=== PATIENT | female | born 1935 | race Caucasian/White ===

== ENCOUNTER 2018-07-03 10:21 | Outpatient (REF) | payer MEDICARE, OTHER, SELFPAY ==
[2018-07-03 13:28] LABS: ALT 22 U/L (12-78); AST 19 U/L (15-37); Albumin 3.1 g/dL (3.4-5.0); Alkaline Phosphatase 104 U/L (46-116); Anion Gap 6.5 mmol/L (3-11); BUN 13 mg/dL (7-18); Bilirubin, Total 0.4 mg/dL (0.2-1.0); CO2 29.5 mmol/L (21.0-32.0); Calcium 9.3 mg/dL (8.5-10.1); Chloride 106 mmol/L (98-107); Cholesterol 163 mg/dL (50-200); Estimated GFR 47.67 (mL/min/1.73m2); Glucose 100 mg/dL (70-100); HDL Cholesterol 43 mg/dL (40-60); LDL CHOLESTEROL 97 mg/dL (<100); Potassium 4.4 mmol/L (3.5-5.1); Sodium 142 mmol/L (136-145); Total Protein 6.4 g/dL (6.4-8.2); Triglyceride 172 mg/dL (30-150)
== END 2018-07-03 10:41 ==
LOC: NCHCN 10:21
PROVIDERS: PCP Nurse Practitioner; Visit Provider Nurse Practitioner
DX: E78.5 Hyperlipidemia, unspecified (principal); I10 Essential (primary) hypertension
CPT/HCPCS: 80053; 80061; 83721

== ENCOUNTER 2018-07-18 00:48 | Outpatient (CLI) | payer MEDICARE, OTHER, SELFPAY ==
--- NOTE | 2018-07-18 13:42 | MERGE_ITS ---
*[facility]* *[facility]* [address] [place] [address] Date of study: 07/18/2018 Transthoracic Echocardiography M-mode, complete 2D, complete spectral Doppler, and color Doppler *STUDY CONCLUSIONS* Summary: 1. Left ventricle: The cavity size was normal. There was mild asymmetric hypertrophy of the septum. Systolic function was normal. The estimated ejection fraction was 60-65%. Wall motion was normal; there were no regional wall motion abnormalities. 2. Mitral valve: There was mild regurgitation. 3. Right ventricle: The cavity size was normal. Wall thickness was normal. Systolic function was normal. *PATIENT PRESENTATION* Height: 165.1cm ((65in) ) S/D Pressure: 172 / 70 Weight: 81.6kg ((179.6lb) ) BSA: 1.96m^2 Test start time: 02:00 PM. Test stop time: 03:00 PM. PERFORMING Unknown PERFORMING Nv ORDERING eJane Ruiz REFERRING Jeane Ruiz INSURANCE CLAIMS CLERK RT Omar (R)(CT), [facility] *PROCEDURE DATA* Procedure information: The patient was identified by two identifiers. This study was interpreted by [facility]. Pertinent images and digital data are archived for permanent storage and are available for subsequent review. No prior study was available for comparison. Study status: Routine. Transthoracic echocardiography. M-mode, complete 2D, complete spectral Doppler, and color Doppler. A Transthoracic Echocardiogram was performed. Scanning was performed from the parasternal, apical, subcostal, and suprasternal notch acoustic windows. Images were obtained using an [id number] cardiac ultrasound machine. Image quality was adequate. Study completion: The patient tolerated the procedure well. There were no complications. History: PMH: Heart murmur R01.1. *CARDIAC ANATOMY* Left ventricle: The cavity size was normal. There was mild asymmetric hypertrophy of the septum. Systolic function was normal. The estimated ejection fraction was 60-65%. Wall motion was normal; there were no regional wall motion abnormalities. Findings consistent with diastolic dysfunction. Aortic valve: Trileaflet; mildly thickened, mildly calcified leaflets. Mobility was not restricted. Doppler: Transvalvular velocity was within the normal range. There was no stenosis. There was no significant regurgitation. VTI ratio of LVOT to aortic valve: 0.53. Valve area (VTI): 1.7cm^2. Indexed valve area (VTI): 0.8cm^2/m^2. Peak velocity ratio of LVOT to aortic valve: 0.58. Valve area (Vmax): 1.8cm^2. Indexed valve area (Vmax): 0.9cm^2/m^2. Mean velocity ratio of LVOT to aortic valve: 0.62. Valve area (Vmean): 1.9cm^2. Indexed valve area (Vmean): 1cm^2/m^2. Mean gradient (S): 3.7mm Hg. Peak gradient (S): 6mm Hg. Aorta: Aortic root: The aortic root was normal in size. Ascending aorta: The ascending aorta was normal in size. Mitral valve: Mildly calcified annulus. Mobility was not restricted. Doppler: Transvalvular velocity was within the normal range. There was no evidence for stenosis. There was mild regurgitation. Valve area by pressure half-time: 3.5cm^2. Indexed valve area by pressure half-time: 1.8cm^2/m^2. Peak gradient (D): 3mm Hg. Left atrium: The atrium was normal in size. Right ventricle: The cavity size was normal. Wall thickness was normal. Systolic function was normal. Pulmonic valve: Mildly thickened leaflets. Doppler: Transvalvular velocity was within the normal range. There was no evidence for stenosis. There was mild regurgitation. Peak gradient (S): 3.5mm Hg. Tricuspid valve: Structurally normal valve. Doppler: Transvalvular velocity was within the normal range. There was no evidence for stenosis. There was mild regurgitation. Pulmonary artery: Pulmonary systolic pressure was within the normal range, in the range of 35mm Hg to 40mm Hg. Right atrium: The atrium was normal in size. Pericardium: There was no pericardial effusion. Systemic veins: Inferior vena cava: Well visualized. The vessel was patent and normal in size. The respirophasic diameter changes were in the normal range (greater than or equal to 50%). Baseline ECG: Normal sinus rhythm. Measurements Left ventricle Value Reference LV ID, ED, PLAX 4.7 cm 3.5 - 6.0 LV ID, ES, PLAX 3.0 cm 2.1 - 4.0 LV PW thickness, ED, PLAX 0.9 cm LV end-diastolic volume, 1-p A2C 65 ml LV ejection fraction, 1-p A2C 67 % LV end-diastolic volume, 1-p A4C 60 ml LV ejection fraction, 1-p A4C 65 % LV e', lateral 0.072 m/sec LV E/e', lateral 12 LV e', medial 0.052 m/sec LV E/e', medial 16 LV e', average 0.062 m/sec LV E/e', average 14 Ventricular septum Value Reference IVS thickness, ED, PLAX 1.3 cm LVOT Value Reference LVOT ID, S 2.0 cm LVOT ID, A-P 2.0 cm LVOT area 3.1 cm^2 LVOT peak velocity, S 0.72 m/sec LVOT mean velocity, S 0.57 m/sec LVOT VTI, S 16.4 cm LVOT peak gradient, S 2.1 mm Hg LVOT mean gradient, S 1.3 mm Hg Stroke volume (SV), LVOT DP 47 ml Stroke index (SV/bsa), LVOT DP 24 ml/m^2 Aortic valve Value Reference Aortic valve peak velocity, S 1.2 m/sec Aortic valve mean velocity, S 0.91 m/sec Aortic valve VTI, S 31.0 cm Aortic mean gradient, S 3.7 mm Hg Aortic peak gradient, S 6 mm Hg VTI ratio, LVOT/AV 0.53 Aortic valve area, VTI 1.7 cm^2 Velocity ratio, peak, LVOT/AV 0.58 Aortic valve area, peak velocity 1.8 cm^2 Velocity ratio, mean, LVOT/AV 0.62 Aortic valve area, mean velocity 1.9 cm^2 Aortic valve area/bsa, mean velocity 1 cm^2/m^2 Aorta Value Reference Aortic root ID, ED 3.1 cm Ascending aorta ID, A-P, S 3.3 cm Left atrium Value Reference LA ID, A-P, ES 3.5 cm LA ID/bsa, A-P 1.8 cm/m^2 <=2.2 LA area, ES, A4C 20.5 cm^2 8.8 - 23.4 LA area, ES, A2C 20 cm^2 LA volume/bsa, ES, 1-p A4C 35 ml/m^2 LA volume, ES, 2-p 55 ml LA volume/bsa, ES, 2-p 28 ml/m^2 LA/aortic root ratio 1.1 Mitral valve Value Reference Mitral E-wave peak velocity 0.86 m/sec Mitral A-wave peak velocity 0.78 m/sec Mitral deceleration time 218 ms 150 - 230 Mitral pressure half-time 63 ms Mitral peak gradient, D 3 mm Hg Mitral E/A ratio, peak 1.11 Mitral valve area, PHT, DP 3.5 cm^2 Pulmonary veins Value Reference Pulmonary vein peak velocity, S 0.7 m/sec Pulmonary vein peak velocity, D 0.72 m/sec Pulmonary vein velocity ratio, peak, 0.97 S/D Pulmonary vein A-wave reversal peak 0.31 m/sec velocity Tricuspid valve Value Reference Tricuspid regurg peak velocity 3.2 m/sec Tricuspid peak RV-RA gradient 40 mm Hg Right atrium Value Reference RA area, ES, A4C 17.3 cm^2 8.3 - 19.5 Pulmonic valve Value Reference Pulmonic peak gradient, S 3.5 mm Hg Legend: (L) and (H) rashmi values outside specified reference range. I have personally reviewed the images and have reviewed and edited the reported findings. Electronically signed by Rohan Carmichael 07/18/2018 17:32
== END 2018-07-18 01:08 ==
PROVIDERS: PCP Nurse Practitioner; Visit Provider Nurse Practitioner
DX: R01.1 Cardiac murmur, unspecified (principal); I34.0 Nonrheumatic mitral (valve) insufficiency; I10 Essential (primary) hypertension; E78.5 Hyperlipidemia, unspecified
CPT/HCPCS: 93306

== ENCOUNTER 2019-01-02 11:42 | Outpatient (REF) | payer MEDICARE, OTHER, SELFPAY ==
[2019-01-02 13:50] LABS: HCT 40.6 % (36.0-46.0); HGB 12.9 g/dL (12.0-15.5); Mean Corp. HGB Concentration 31.8 g/dL (32.0-36.0); Mean Corpuscular Hemoglobin 27.7 pg (27.0-33.0); Mean Corpuscular Volume 87.1 fL (80-95); Mean Platelet Volume 10.8 fL (8.0-11.0); Platelet Count 421 x1000/uL (130-400); RBC 4.66 m/cumm (4.00-5.20); RBC Distribution Width 13.4 % (11.7-14.6); White Blood Cell Count 9.29 k/cumm (4.4-10.8)
[2019-01-02 15:03] LABS: ALT 17 U/L (14-59); AST 20 U/L (15-37); Albumin 3.3 g/dL (3.4-5.0); Alkaline Phosphatase 122 U/L (46-116); Anion Gap 8.1 mmol/L (3-11); BUN 17 mg/dL (7-18); Bilirubin, Total 0.5 mg/dL (0.2-1.0); CO2 28.9 mmol/L (21.0-32.0); CREATININE 1.01 mg/dL (0.55-1.02); Calcium 9.6 mg/dL (8.5-10.1); Chloride 105 mmol/L (98-107); Estimated GFR 52.61 (mL/min/1.73m2); Glucose 88 mg/dL (70-100); Potassium 4.6 mmol/L (3.5-5.1); Sodium 142 mmol/L (136-145); TSH (W/Ref FT4) 1.99 uIU/mL (0.36-3.74); Total Protein 6.6 g/dL (6.4-8.2)
== END 2019-01-02 12:02 ==
LOC: NCHCN 11:42
PROVIDERS: PCP Nurse Practitioner; Visit Provider Nurse Practitioner
DX: R53.83 Other fatigue (principal)
CPT/HCPCS: 80053; 85027; 84443

== ENCOUNTER 2019-01-02 13:49 | Outpatient (CLI) | payer MEDICARE, OTHER, SELFPAY ==
--- NOTE | 2019-01-02 11:30 | DI.RAD_ITS ---
EXAM: XR RIBS LT W PA LAT CHEST INDICATION: RIB PAIN R07.81, FELL 2 WEEKS AGO, LT ANTERIOR CHEST WALL DISCOMFORT. COMPARISON: CHEST 2 VIEWS PA,LAT from 04/10/2012 TECHNIQUE: 2D digital imaging was performed. FINDINGS: Heart size is normal. The lungs are clear. No pneumothorax is seen. No thoracic compression fract ures are seen. A BB marker was placed over the lower left ribs in the area of the patient's pain. N o rib fractures are visible. IMPRESSION: No acute abnormality.
== END 2019-01-02 14:09 ==
PROVIDERS: PCP Nurse Practitioner; Visit Provider Nurse Practitioner
DX: R07.81 Pleurodynia (principal)
CPT/HCPCS: 71046; 71100

== ENCOUNTER 2019-02-05 15:01 | Outpatient (REF) | payer MEDICARE, OTHER, SELFPAY ==
[2019-02-05 19:06] LABS: Abs Immature Grans 0.02 k/cumm (0.0-0.09); Absolute Basophil Count 0.05 k/cumm (0.0-0.2); Absolute Eosinophil Count 0.06 k/cumm (0.0-0.7); Absolute Lymphocyte Count 2.83 k/cumm (1.2-3.4); Absolute Monocyte Count 1.15 k/cumm (0.11-0.7); Absolute Neutrophil Count 5.87 k/cumm (1.2-6.7); Basophils % 0.5; Eosinophils % 0.6; HCT 41.2 % (36.0-46.0); HGB 13.3 g/dL (12.0-15.5); Immature Grans % 0.2; Lymphocytes % 28.4; Mean Corp. HGB Concentration 32.3 g/dL (32.0-36.0); Mean Corpuscular Hemoglobin 28.1 pg (27.0-33.0); Mean Corpuscular Volume 87.1 fL (80-95); Mean Platelet Volume 10.9 fL (8.0-11.0); Monocytes % 11.5; Neutrophils % 58.8; Platelet Count 436 x1000/uL (130-400); RBC 4.73 m/cumm (4.00-5.20); RBC Distribution Width 13.5 % (11.7-14.6); White Blood Cell Count 9.98 k/cumm (4.4-10.8)
[2019-02-05 19:54] LABS: Iron 84 ug/dL (50-170); Total Iron Binding Capacity 319 ug/dL (250-450); Transferrin Sat 26 % (15-50)
[2019-02-05 20:13] LABS: ALT 21 U/L (14-59); AST 20 U/L (15-37); Albumin 3.6 g/dL (3.4-5.0); Alkaline Phosphatase 105 U/L (46-116); Anion Gap 7.8 mmol/L (3-11); BUN 14 mg/dL (7-18); Bilirubin, Total 0.5 mg/dL (0.2-1.0); CO2 31.2 mmol/L (21.0-32.0); CREATININE 1.11 mg/dL (0.55-1.02); Calcium 9.8 mg/dL (8.5-10.1); Chloride 103 mmol/L (98-107); Estimated GFR 47.18 (mL/min/1.73m2); Ferritin 30 ng/mL (8-252); Glucose 104 mg/dL (74-106); Potassium 4.4 mmol/L (3.5-5.1); Sodium 142 mmol/L (136-145); Total Protein 6.9 g/dL (6.4-8.2)
[2019-02-05 20:41] LABS: Amylase 81 U/L (25-115); Lipase 237 U/L (73-393)
== END 2019-02-05 15:21 ==
LOC: NCHCN 15:01
PROVIDERS: PCP Nurse Practitioner; Visit Provider Nurse Practitioner
DX: R53.83 Other fatigue (principal); R10.11 Right upper quadrant pain
CPT/HCPCS: 80053; 83690; 82150; 82728; 83540; 83550; 85025

== ENCOUNTER 2019-02-07 01:39 | Outpatient (CLI) | payer MEDICARE, OTHER, SELFPAY ==
--- NOTE | 2019-02-07 07:48 | DI.US_ITS ---
EXAM: US ABDOMEN CLINICAL HISTORY: ABDOMINAL PAIN, RUQ R10.11 TECHNIQUE: Ultrasound performed using standard protocol. FINDINGS: The liver is incompletely seen and heterogeneous in appearance. Gallbladder is been surgically remov ed. No biliary dilatation. Pancreas not ideally visualized but grossly unremarkable. Kidneys appea r intact as visualized with no evidence of hydronephrosis or nephrolithiasis. Abdominal aorta and IV C are of normal diameter. IMPRESSION: Incomplete visualization of liver. Grossly unremarkable examination post cholecystectomy.
== END 2019-02-07 01:59 ==
PROVIDERS: PCP Nurse Practitioner; Visit Provider Nurse Practitioner
DX: R10.11 Right upper quadrant pain (principal); Z90.49 Acquired absence of other specified parts of digestive tract
CPT/HCPCS: 76700

== ENCOUNTER 2019-12-20 04:26 | Observation (INO) | payer MEDICARE, OTHER, SELFPAY ==
[2019-12-20] VITALS (81 sets, daily range): BP systolic 131–241; BP diastolic 55–118; PULSE 55–82; RESP 10–27; TEMP 36.3–36.8; O2SAT 95–99
--- NOTE | 2019-12-20 | DI.US_ITS ---
APPROVED REPORT EXAM: Comprehensive 2D, Doppler, and color-flow Echocardiogram Patient Location: In-Patient Room/Bed: [id number] Construction Producer: Yessi aLm RDCS (AE) Indications: CVA Other Information Study Quality: Good Conclusion Left Ventricle : The left ventricle is normal size. The left ventricular systolic function is normal. The left ventricular ejection fraction is within the normal range. There is normal left ventricular wall thickness. There is normal LV segmental wall motion. The left ventricular diastolic function is normal. LVEF is 60%. Right Ventricle : The right ventricle is normal size. The right ventricular systolic function is norm al. The RVSP is 45.5mmHg. Atria : The left atrium size is normal. The right atrium size is normal. Mitral Valve : Mild mitral annular calcification. No evidence of mitral valve stenosis. Mild mitral r egurgitation. Great Vessels : The aortic root is normal in size. The ascending aorta is mildly dilated. Aortic arch is normal in caliber. IVC is normal in size and collapses >50% with inspiration. Please see remainder of study for further details. Compared to study from 07/18/2018: There is no significant change. Wall motion Left Ventricle The left ventricle is normal size. The left ventricular systolic function is normal. The left ventric ular ejection fraction is within the normal range. There is normal left ventricular wall thickness. T here is normal LV segmental wall motion. The left ventricular diastolic function is normal. There is no ventricular septal defect visualized. LVEF is 60%. Right Ventricle The right ventricle is normal size. The right ventricular systolic function is normal. The RVSP is 45 .5mmHg. Atria The left atrium size is normal. The right atrium size is normal. The interatrial septum is intact wit h no evidence for an atrial septal defect. Aortic Valve The Aortic valve is sclerotic. Aortic valve is trileaflet. There is no aortic valvular stenosis. No a ortic regurgitation is present. Mitral Valve Mild mitral annular calcification. No evidence of mitral valve stenosis. Mild mitral regurgitation. Tricuspid Valve The tricuspid valve is normal in structure. There is no tricuspid valve stenosis. Mild to moderate tr icuspid regurgitation. Pulmonic Valve The pulmonary valve is normal in structure. There is no pulmonic valvular stenosis. Trace pulmonic re gurgitation. Great Vessels The aortic root is normal in size. The ascending aorta is mildly dilated. Aortic arch is normal in ca liber. IVC is normal in size and collapses >50% with inspiration. Pericardium There is no pericardial effusion. 2D Dimensions IVSD d PLAX 0.99 cm F: 0.6-1.0 LV Vol A2C d MOD 85.5 mL LVPW d PLAX 0.97 cm F: 0.6 - 1.0 LV Vol A4C d MOD 101.1 mL LVID d PLAX 4.54 cm F: 3.8 - 5.2 LA vol/ BSA A2C s A-L 29.6 mL/m2 LVDs 2.95 cm F: 2.2 - 3.5 LA vol/ BSA A4C s A-L 32.0 mL/m2 Ao Root d 2.69 cm F: 2.7 - 3.3 LA Vol/ BSA Biplane s A-L 30.9 mL/m2 RA Area A4C 16.17 cm2 LA Area A4C s MOD 20.71 cm2 RA Vol/ BSA A4C s A-L 21.1 mL/m2 LA Area A2C s MOD 20.02 cm2 Ao Asc Diam d 3.39 cm F: 2.3 - 3.1 LV EF A4C MOD 60.9 % LV EF Teichholz 63.1 % LV EF A2C MOD 59.5 % LVEF (Saavedra's) 59.68 % F: 54 - 74 LV EF Biplane MOD 59.7 % LV Volume 71.68 mL F: 46 - 106 SV 56.18 mL LV Volume Index 37.52 mL/m2 F: 29 - 61 SV Index 29.37 mL/m2 LV Vol Biplane MOD 94.1 mL FS 34.00 % M-Mode TAPSE 3.25 cm (M/F) >1.7 LV Diastology MV E' medial 0.075 (>0.07 m/s) E/A Ratio 1.1 LV E/e MED 12.95 (<14) MV E Vmax 0.97 (0.4-1.3 m/s) MV E' lateral 0.098 (>0.1 m/s) MV A Vmax 0.85 (0.4-1.3 m/s) LV E/e LAT 9.85 (<14) MV E/A Ratio 1.12 MV E/E' medial 12.95 MV E/E' lateral 9.88 Aortic Valve LVOT Area 3.05 cm2 AoV Area Vmax 2.29 cm2 LVOT Vmax 1.26 m/s AoV Area/ BSA (Vmax) 1.20 cm2/m2 LVOT Mean Harshal. 0.79 m/s LEIGHTON Mean Harshal. 2.15 cm2 LVOT Peak Grad 6.3 mmHg LEIGHTON Mean Harshal. Index 1.12 cm2/m2 LVOT Mean Grad 3.0 mmHg LVOT VTI 0.311 m LVOT Diam s 1.95 cm AoV Vmax 1.67 m/s Velocity Ratio 0.75 AoV Mean Harshal. 1.12 m/s AoV Peak Grad 11.2 mmHg LVOT SV 95.01 mL AoV Mean Grad 5.8 mmHg AoV VTI 0.440 m AoV Area VTI 2.16 cm2 AoV Area/ BSA (VTI) 1.13 cm/m2 Mitral Valve MV DT 191 (160-240 msec) MR Vmax 5.57 m/s MV PHT 55 msec MR VTI 1.980 m MV Area PHT 3.98 cm2 MR Peak Grad 124.2 mmHg MV VTI 0.333 m MR Mean Grad 98.2 mmHg MV VTI Annulus 0.348 m MR PISA Radius 0.33 cm MV Area VTI 2.99 (4.0-6.0 cm2) MR EROA 0.04 cm2 MR Aliasing Velocity 0.35 m/s MR PISA 0.69 cm2 Pulmonary Valve PV Vmax 0.99 (0.5-1.5 m/s) RVOT Peak Gr. 2.12 mmHg PV Peak Grad 4.0 mmHg RVOT Mean Gr. 1.05 mmHg PV Mean Grad 2.2 mmHg RVOT VTI 0.172 m PV VTI 0.243 m RVOT Vmax 0.73 m/s Tricuspid Valve TR Peak Grad 42.4 mmHg TR Vmax 3.26 m/s RA Pressure 3.00 mmHg RVSP (TR) 45.5 mmHg
--- NOTE | 2019-12-20 | DI.MRI_ITS ---
EXAM: MR BRAIN WO CLINICAL HISTORY: stroke TECHNIQUE: Multiplanar multisequence MRI of the brain was performed. COMPARISON: No exams were available for comparison FINDINGS: There is mild generalized cerebral atrophy consistent with the patient's age.. There are scattered white matter focal areas of abnormal signal consistent mild microvascular ischemi c changes. The orbital and temporal bone structures appear intact as does the pituitary. Diffusion weighted imaging shows small focal area of abnormal signal in left thalamus period ADC map shows decreased signal at this site consistent with acute to subacute infarction. Susceptibility weighted imaging shows couple of small focal areas of abnormal signal in the basal wally glia bilaterally which are likely to represent calcifications. No gross hemorrhagic seen. There is normal flow void in the [place] vasculature. 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 No other acute change. DATA REPOSITORY:
--- NOTE | 2019-12-20 03:45 | RT.EKG_ITS ---
APPROVED REPORT Exam: Resting ECG Patient Location: E HR:66 bpm ECG Measurements Heart Rate 66 AXIS NC 206 P 48 QRSd 93 QRS 13 QT 412 T 72 QTc 431 Conclusion EKG 4: 23 Rate 66, intervals normal aside for a slightly prolonged NC at 206, sinus rhythm, atypical T wave abn ormality in V4 with less than 1 mm of depression, no reciprocal elevation, no evidence of STEMI.
--- NOTE | 2019-12-20 04:22 | ED.GENADUL_ITS ---
Discharge Plan Disposition Patient Disposition: [facility] INPATIENT Condition: Improving Discharge Details Clinical Impression: Hypertensive emergency, Stroke-like symptom, Numbness on right side Primary Care Provider: Jeane Ruiz ED Provider: Skip Patel Home Meds and New Rx's Prescriptions: No Action rabeprazole [AcipHex] 20 MG tablet,delayed release (DR/EC) 20 mg PO BID RF: 0 atorvastatin 10 MG tablet 10 mg PO DAILY RF: 0 metoprolol succinate 50 MG tablet extended release 24 hr 50 mg PO DAILY RF: 0 aspirin [Aspirin Low-Strength] 81 MG tablet,chewable See Rx Instructions .ROUTE .COMPLEX RF: 0 cholecalciferol (vitamin D3) [Vitamin D3] 1,000 UNIT capsule 1,000 unit PO DAILY RF: 0 escitalopram oxalate [Lexapro] 5 MG/5 ML solution 10 mg PO DAILY RF: 0 hydrochlorothiazide 12.5 mg Capsule 12.5 mg PO DAILY RF: 0 Medical Decision Making Upon my evaluation, this patient had a high probability of imminent or life- threatening deterioration, which required my direct attention, intervention, and personal management. I have personally provided 45 minutes of critical care time exclusive of time spent on separately billable procedures. Time includes review of laboratory data, radiology results, discussion with consultants, and monitoring for potential decompensation. Interventions were performed as documented. 84-year-old female with a past medical history of previous breast and bladder cancer with left-sided mastectomy, hypertension, high cholesterol, diabetes, and a distant TIA, over 40 years ago. She presents today for evaluation of right-sided tingling. Patient states that 2 hours ago at 2 AM she developed sudden onset right-sided tingling when she awoke. She got moved around hoping this would make it better but it did not. She describes the numbness and tingling as going from the right side of her face all the way down to her right leg. EMS was called, stroke assessment at that time demonstrated no focal deficits. She was brought to the ER for further management. Initial vital signs per EMS demonstrated a notable hypertensive scenario with a blood pressure in the systolic of the 240s. She denies any headache, neck pain, chest pain, tearing or ripping sensation in the chest, recent falls or trauma or new medications. She does take metoprolol 50 mg twice daily and has not missed any doses. She denies any other complaints at this time. She denies any vision changes, nausea vomiting or diarrhea. No other complaints modifying factors. M demonstrates notable deficit in sensation for the right side of the patient's body, worse in the leg, moderate in the chest and abdomen, mild in the right arm, and minimal in the right face. The remainder of her neurologic exam is otherwise unremarkable. Pulses are equal throughout, strength is equal and symmetric throughout. Symptoms are certainly atypical, with the patient's notably elevated blood pressure a hypertensive emergency is certainly on the differential. We will start with 10 mg of labetalol and reassess. EKG shows no evidence of STEMI or significant abnormality. Differential also obviously includes stroke versus TIA for which we will get CT imaging. I did contact the patient's and discussed this with him, he will be coming in to be with the patient. We will monitor closely and reassess. Right now the patient symptoms appearing consistent with dissection with no evidence of chest pain shortness of breath or chest tightness. NIH score is one-point, not a candidate for TPA. I did discuss options of TPA as a precaution though, and both she and her are not interested in that at this time. Additionally I do not see indication for currently. The risks certainly do not outweigh the potential minimal benefit. Family agrees. 5:58 AM Laboratory work-up is returned relatively unremarkable. Electrolytes are stable, TSH is notably elevated but I do not think that this is the cause of her symptomatology. EKG and troponin are both negative although she does have slight T wave abnormality in V4. CT/CTA of the head is negative for bleed or occlusion, chest x-ray negative for mediastinal widening. On reassessment after 20 of IV labetalol the patient's blood pressure only came down to the high 190s, nicardipine drip was started and the patient's blood pressure is now come down to the 180s/170s, we will hold there. Symptoms actually are starting to show mild improvement with mild improvement in sensation in her lower extremity and a notable improvement in her upper extremity. She still is not a candidate for TPA especially with this notable improvement of her symptoms and with her continued low NIH stroke scale. I do feel her symptoms are more likely consist ent with a hypertensive emergency rather than a TIA however I do feel she would benefit from inpatient management, MRI imaging, and continued assessment. Of note the patient does state that she did take a full dose of aspirin prior to arrival. We will hold on her aspirin here. I did discuss the case with hospitalist Dr. Walters. He agrees with the assessment and plan. I have extensively reviewed the treatment plan with the patient. I have addressed all patient concerns at this time. I have also discussed the plan with the admitting physician and they agree with the current assessment and plan and have agreed to assume responsibility for the patient. All parties demonstrate verbal understanding and agreement with our assessment and plan at this time. EKG 4: 23 Rate 66, intervals normal aside for a slightly prolonged [place] at 206, sinus rhythm, atypical T wave abnormality in V4 with less than 1 mm of depression, no reciprocal elevation, no evidence of STEMI. FINDINGS: Lungs: Mild chronic interstitial prominence No consolidation. Pleural space: No pleural effusion. No pneumothorax. Heart/Mediastinum: No mediastinal widening. No cardiomegaly. Bones/joints: Unremarkable. Prior left mastectomy by history IMPRESSION: No acute findings. No radiographic evidence for pneumonia No mediastinal widening Thank you for allowing us to participate in the care of your patient. Dictated and Authenticated by: Brodie Mccrary MD 12/20/2019 5:43 AM Eastern Time ([place] & [place] FINDINGS: ANTERIOR CIRCULATION: Right internal carotid artery: Intracranial segment is patent with no significant stenosis or occlusion. No aneurysm. Right middle cerebral artery: No occlusion or significant stenosis. No aneurysm. Right anterior cerebral artery: No occlusion or significant stenosis. No aneurysm. Left internal carotid artery: Intracranial segment is patent with no significant stenosis. No aneurysm. Left middle cerebral artery: No occlusion or significant stenosis. No aneurysm. Left anterior cerebral artery: No occlusion or significant stenosis. No aneurysm. POSTERIOR CIRCULATION: Right vertebral artery: No occlusion or significant stenosis. No aneurysm. Left vertebral artery: No occlusion or significant stenosis. No aneurysm. Basilar artery: No occlusion or significant stenosis. No aneurysm. Right posterior cerebral artery: No occlusion or significant stenosis. No aneurysm. Left posterior cerebral artery: No occlusion or significant stenosis. No aneurysm. HEAD: Brain:No acute intracranial hemorrhage. No significant white matter disease. No edema. Cerebral ventricles: Normal. No ventriculomegaly. Bones/joints: Unremarkable. No acute fracture. Paranasal sinuses: Visualized sinuses are normal. No fluid levels. Mastoid air cells: Visualized mastoids are normal. No mastoid effusion. Soft tissues: Unremarkable. IMPRESSION: No large vessel occlusion. Unremarkable CT head. Right common carotid artery: No stenosis. No dissection or occlusion. Right internal carotid artery: No stenosis of the extracranial segment. No dissection or occlusion. Right external carotid artery: No occlusion or stenosis of the origin. Right vertebral artery: No stenosis. No dissection or occlusion. Left common carotid artery: No stenosis. No dissection or occlusion. Left internal carotid artery: No stenosis of the extracranial segment. No dissection or occlusion. Left external carotid artery: No occlusion or stenosis of the origin. Left vertebral artery: No stenosis. No dissection or occlusion. Bones/joints: No acute fracture. Soft tissues: Right-sided thyroid nodule measuring 9 mm by no in the No significant soft tissue swelling. IMPRESSION: No stenosis or occlusion. HPI General Date/Time Provider Initiated Documentation: 12/20/19 04:59 . HPI Narrative: 84-year-old female with a past medical history of previous breast and bladder cancer with left-sided mastectomy, hypertension, high cholesterol, diabetes, and a distant TIA, over 40 years ago. She presents today for evaluation of right-sided tingling. Patient states that 2 hours ago at 2 AM she developed sudden onset right-sided tingling when she awoke. She got moved around hoping this would make it better but it did not. She describes the numbness and tingling as going from the right side of her face all the way down to her right leg. EMS was called, stroke assessment at that time demonstrated no focal deficits. She was brought to the ER for further management. Initial vital signs per EMS demonstrated a notable hypertensive scenario with a blood pressure in the systolic of the 240s. She denies any headache, neck pain, chest pain, tearing or ripping sensation in the chest, recent falls or trauma or new medications. She does take metoprolol 50 mg twice daily and has not missed any doses. She denies any other complaints at this time. She denies any vision changes, nausea vomiting or diarrhea. No other complaints modifying factors. Related Data Home Medications Medication Instructions Recorded Confirmed aspirin [Aspirin Low-Strength] See Rx Instructions .ROUTE 04/01/14 12/20/19 .COMPLEX tab-cap atorvastatin 10 mg PO DAILY tab-cap 04/01/14 12/20/19 cholecalciferol (vitamin D3) 1,000 unit PO DAILY 04/01/14 12/20/19 [Vitamin D] escitalopram oxalate [Lexapro] 10 mg PO DAILY ml 04/01/14 12/20/19 metoprolol succinate 50 mg PO DAILY tab-cap 04/01/14 12/20/19 rabeprazole [Aciphex] 20 mg PO BID 04/01/14 12/20/19 hydrochlorothiazide 12.5 mg PO DAILY 12/20/19 12/20/19 Allergies Allergy/AdvReac Type Severity Reaction Status Date / Time codeine AdvReac nausea Unverified 12/20/19 04:16 Sulfa (Sulfonamide AdvReac GI upset Unverified 12/20/19 04:16 Antibiotics) General Stated Complaint: CVA/TIA JULY: 3 Review of Systems All systems reviewed & are unremarkable except as noted in HPI and below PFSH Social History Smoking/Tobacco Use Status: Former Tobacco Use Alcohol Intake: never Drug use: Never Substance use type: does not use Do you feel safe at home: Yes Do you feel safe in your relationship?: Yes Exam Narrative Exam Narrative: 1.Const: Well-nourished, Well-developed, appearing stated age 2.Eyes: PERRL, no conjunctival injection, and symmetrical lids. 3.ENT: Atraumatic external nose and ears. Moist MM. Neck: Symmetric, trachea midline, No thyromegaly. Patient demonstrates good movement of cervical neck. There is no nuchal rigidity, no nuchal tenderness. Patient is able to flex the neck without any difficulty or significant pain. Negative Kernig's and Brudzinski sign. 4.CVS: +S1/S2, No murmurs or gallops. Peripheral pulses 2+ and equal in all extremities. Brisk capillary refill in all extremities. 5.RESP: Unlabored respiratory effort. Clear to auscultation bilaterally. No wheezes rales or rhonchi 6.GI: Soft, Nontender/Nondistended, No hepatosplenomegaly. No guarding or rebound. 7.MSK: Normocephalic/Atraumatic, Extremities w/o deformity or ttp No cyanosis or clubbing, Normal movement of all extremities 8.Skin: Warm, Dry. No rashes or lesions. 9.Neuro: master in chancery II-XII grossly intact. All 6 cardinal planes of vision are fully intact. However the patient does seem to have some slight blurry vision on the right visual garber in comparison to the left for the right lateral and specific. No evidence of rotatory or vertical nystagmus, she does have mild horizontal nystagmus, fatigable, unidirectional to the left. The patient demonstrated a normal [id number], good dexterity. There was no evidence of dysdiadochokinesia.. The patient demonstrated a notably unsteady gait. Vgtv-wg-tyse testing was normal. muscle strength bilaterally equal and present for all extremities. Patient was able to verbalize butter cup with no slurring, or miss pronunciation. Notable sensation deficit for the right side of the patient's body. She has notably decreased and almost absent sensation for the right lower extremity including the foot toes and thigh. Decreased sensation over the right side of the abdomen and chest. Decreased but mildly present sensation for the right arm which she describes subjectively as [id number]. No significant pain with pinching. Sensation is present on the right side of the face but she subjectively feels that it is notably less in no debility in comparison to the left. Left side of the patient's body demonstrates normal sensation throughout. 10.Psych: (AAO) x3. Appropriate mood and affect Course Vital Signs Vital signs: Vital Signs Temperature 36.8 C 12/20/19 04:08 Pulse 78 12/20/19 04:08 Respiratory Rate 18 12/20/19 04:08 Blood Pressure 241/82 H 12/20/19 04:08 Pulse Oximetry 98 12/20/19 04:08 Temperature 36.8 C 12/20/19 04:08 Temperature Source Skin 12/20/19 04:08 Pulse 78 12/20/19 04:08 Respiratory Rate 18 12/20/19 04:08 Blood Pressure 241/82 H 12/20/19 04:08 Blood Pressure Position Supine 12/20/19 04:08 Pulse Oximetry 98 12/20/19 04:08 Oxygen Delivery Method Room Air 12/20/19 04:08 Oxygen Flow Rate 0 12/20/19 04:08 Pain Level 0 12/20/19 04:08
[2019-12-20] MEDS: Labetalol 100 MG/20 ML VIAL 20 MG IVP ×2 (04:28→04:43)
[2019-12-20] MEDS: Normal Saline 500 ML IV (04:30)
[2019-12-20 04:38] LABS: Abs Immature Grans 0.02 10^3/uL (0.0-0.06); Absolute Basophil Count 0.09 10^3/uL (0.0-0.2); Absolute Eosinophil Count 0.18 10^3/uL (0.0-0.7); Absolute Lymphocyte Count 3.02 10^3/uL (1.2-3.4); Absolute Monocyte Count 1.19 10^3/uL (0.1-0.8); Absolute Neutrophil Count 5.67 10^3/uL (1.2-6.7); Basophils % 0.9; Eosinophils % 1.8; HCT 41.2 % (36.0-46.0); HGB 13.3 g/dL (11.2-15.7); Immature Grans % 0.2; Lymphocytes % 29.7; MCH 28.1 pg (27.0-33.0); MCHC 32.3 % (32.0-36.0); MCV 86.9 fL (80-95); MPV 10.5 fL (8.0-11.0); Monocytes % 11.7; Neutrophils % 55.7; Nucleated RBC 0 %; Platelet Count 375 10^3/uL (130-400); RBC 4.74 10^6/uL (3.93-5.22); RDW 13.1 % (11.7-14.6); RDW-SD 41.1 fL; WBC 10.17 10^3/uL (4.4-10.8)
[2019-12-20 04:45] LABS: PTT Activated 23.6 sec (21.0-31.4)
[2019-12-20 04:53] LABS: ALT 14 U/L (14-59); AST 18 U/L (15-37); Albumin 3.3 g/dL (3.4-5.0); Alkaline Phosphatase 107 U/L (46-116); Anion Gap 10.9 mmol/L (3-11); BUN 16 mg/dL (7-18); Bilirubin, Total 0.4 mg/dL (0.2-1.0); CO2 27.1 mmol/L (21.0-32.0); CREATININE 1.16 mg/dL (0.55-1.02); Calcium 9.3 mg/dL (8.5-10.1); Chloride 103 mmol/L (98-107); Estimated GFR 44.73 (mL/min/1.73m2); Glucose 138 mg/dL (74-106); Potassium 3.8 mmol/L (3.5-5.1); Prothrombin Time 10.2 sec (9.3-11.0); Sodium 141 mmol/L (136-145); TSH (W/Ref FT4) 10.09 uIU/mL (0.36-3.74); Total Protein 6.9 g/dL (6.4-8.2); Troponin I < 0.05 ng/mL (<0.06)
--- NOTE | 2019-12-20 05:08 | DI.RAD_ITS ---
EXAM: XR CHEST 2V PA LATERAL CLINICAL HISTORY: right sided tingling, eval for mediastinal widenin TECHNIQUE: 2D digital imaging was performed. COMPARISON: CR XR RIBS LT W PA LAT CHEST from 01/02/2019 FINDINGS: The heart is not enlarged. The lungs are clear and well expanded. No pleural effusion seen. Mediastin al contours appear intact. Prior left mastectomy noted. IMPRESSION: Normal chest post left mastectomy. RADIATION DOSE DELIVERED: Total DLP
[2019-12-20 05:12] LABS: FREE T4 0.85 ng/dL (0.76-1.46)
--- NOTE | 2019-12-20 05:16 | DI.CT_ITS ---
EXAM: CT BRAIN NECK CTA CLINICAL HISTORY: right sided whole body tingling, r/o stroke/anyuri. TECHNIQUE: Imaging Protocol: Axial CT angiography was performed with multi-slice acquisition and mu lti-planar and/or 3D reconstructions. CONTRAST MATERIAL: Intravenous: Omnipaque 350 Contrast volume:structured data in ml COMPARISON: No exams were available for comparison FINDINGS: CT angiography of the cervical cranial region was performed according to the usual protocol. Initial noncontrast scanning of the head is unremarkable except for mild atrophy consistent with age. . Visualized lung apices are clear. Visualized portions of thoracic aorta and pulmonary arterial circul ation are unremarkable. There is no evidence of a cervical mass or adenopathy. The tracheal laryngeal structures appear intact. The common, internal, and external carotid arteries are within normal limits in the cervical region w ith no evidence of aneurysm, stenosis, or dissection. The vertebral arteries are unremarkable in appearance in the cervical region with no evidence of aneu rysm, stenosis, or dissection. Intracranial portions of the internal carotid arteries appear normal with no evidence of aneurysm, st enosis, or dissection. Intracranial vertebral arteries and basilar artery appear normal with no evidence of aneurysm, stenos is or dissection. No aneurysm identified in the region of the [id number]. The anterior, middle, and posterior cer ebral arteries and major branches appear intact with no evidence of aneurysm, stenosis, or dissection . No enhancing brain lesion identified. IMPRESSION: Negative CT angiography of the cervical cranial region. RADIATION DOSE DELIVERED: 1,147.56mGy.cmTotal DLP 1,147.56mGy.cm Total DLP DATA REPOSITORY: All CT scans at this facility are submitted to the National Radiology Data Registry (NRDR) Dose Index Registry (DIR) with the [employer] (A[employer]). RADIATION OPTIMIZATION: All CT scans at this facility use at least one of these dose optimization te chniques: automated exposure control; mA and/or kV adjustment per patient size (includes targeted exa ms where dose is matched to clinical indication); or iterative reconstruction.
[2019-12-20] MEDS: Omnipaque 350 MG/ML 100 ML BTL IJ (05:50)
[2019-12-20] MEDS: Normal Saline Flush 10 ML SYR IVP (05:50)
[2019-12-20] MEDS: Normal Saline - Diluent 50 ML VIAL IV (05:51)
[2019-12-20] MEDS: niCARdipine 25 MG in Normal Saline 240 ML 50 MG IV (05:52)
[2019-12-20 06:02] LABS: Bilirubin Negative (Negative); Blood Negative (Negative); Clarity Clear (Clear); Glucose Negative (Negative); Ketones Negative (Negative); Leukocyte Esterase Small (Negative); Nitrite Negative (Negative); Specific Gravity 1.015 (1.005-1.025); Urobilinogen 0.2 EU/dL (Up TO 0.2)
[2019-12-20 06:03] LABS: Bacteria Rare HPF (Negative); C & S Indicated? Yes; Casts Negative LPF (Negative); Crystals Negative HPF (Negative); Epithelial Cells Rare HPF (Negative); Mucus Negative (Negative); RBC Negative HPF (0-2); WBC 0-2 HPF (0-5)
--- NOTE | 2019-12-20 06:23 | W.PM.HP.N ---
Date of service: 12/20/19 Time of Service: 06:23 Assessment and Plan Assessment and plan (1) Stroke: Status: Chronic Assessment and plan: Pure sensory stroke, or prolonged TIA. Seems to be improving. Would continue BP control with permissive HTN approx 160/90 and continue ASA (note that she had been weaning down her usual ASA, had reduced to 81 twice weekly). Would continue statin as well. For HTN would adjust regimen -- continue beta shivam and diuretic but add direct vasodilator. Depending on response Amlodipine might be good choice. Reviewed ADs, requests Full Code. History of Present Illness History of Present Illness Chief Complaint: right sided tingling Narrative: 84 female with h/o HTN. Here with gradual onset tingling and numbness right side. Began in RUE, then spreading to RLE and face. Took ASA 325 and came to ER. In ER initial BP 240/sys, given 20 Labetalol and started Nicardipine qtt. CT head negative to my read. Symptoms have been steadily improving, duration at this point 4 hours. No EVANS, change in vision or speech, no weakness. Review of Systems All systems reviewed & are unremarkable except as noted in HPI and below PFSH Social History Smoking/Tobacco Use Status: Former Tobacco Use Alcohol Intake: never Drug use: Never Substance use type: does not use Do you feel safe at home: Yes Do you feel safe in your relationship?: Yes Meds Home Medications and Allergies Home Medications Medication Instructions Recorded Confirmed Type aspirin [Aspirin Low-Strength] See Rx Instructions .ROUTE 04/01/14 12/20/19 History .COMPLEX tab-cap atorvastatin 10 mg PO DAILY tab-cap 04/01/14 12/20/19 History cholecalciferol (vitamin D3) 1,000 unit PO DAILY 04/01/14 12/20/19 History [Vitamin D] escitalopram oxalate [Lexapro] 10 mg PO DAILY ml 04/01/14 12/20/19 History metoprolol succinate 50 mg PO DAILY tab-cap 04/01/14 12/20/19 History rabeprazole [Aciphex] 20 mg PO BID 04/01/14 12/20/19 History hydrochlorothiazide 12.5 mg PO DAILY 12/20/19 12/20/19 History Allergies Allergy/AdvReac Type Severity Reaction Status Date / Time codeine AdvReac nausea Unverified 12/20/19 04:16 Sulfa (Sulfonamide AdvReac GI upset Unverified 12/20/19 04:16 Antibiotics) Exam Narrative Exam Narrative: 188/62, 72, 36.8, 14, 98% RA. HEENT atraumatic; neck supple, w/o bruit; lungs clear; heart RRR w/o MRG; abdomen soft and NT; extremities trace pedal edema; neuro Ox3, PERRL, EOMI, garber full, no facial asymmetry, motor 5/5, sensory decreased light touch RLE, less so RUE; toes downgoing Results Labs Result diagrams: 12/20/19 04:20 12/20/19 04:20 Labs: Laboratory Results - last 24 hr 12/20/19 12/20/19 12/20/19 04:20 04:20 04:20 WBC 10.17 RBC 4.74 Hgb 13.3 Hct 41.2 MCV 86.9 MCH 28.1 MCHC 32.3 RDW 13.1 Plt Count 375 MPV 10.5 Immature Gran % 0.2 Neutrophils % 55.7 Lymphocytes % 29.7 Monocytes % 11.7 Eosinophils % 1.8 Basophils % 0.9 Nucleated RBC % 0 Absolute Neutrophils 5.67 Absolute Lymphocytes 3.02 Absolute Monocytes 1.19 H Absolute Eosinophils 0.18 Absolute Basophils 0.09 PT 10.2 INR 1.0 APTT Sodium 141 Potassium 3.8 Chloride 103 Carbon Dioxide 27.1 Anion Gap 10.9 BUN 16 Creatinine 1.16 H Estimated GFR/1.73 m2 44.73 Glucose 138 H Calcium 9.3 Total Bilirubin 0.4 AST 18 ALT 14 Alkaline Phosphatase 107 Troponin I < 0.05 Total Protein 6.9 Albumin 3.3 L TSH 10.09 H Free T4 0.85 Urine Color Urine Clarity Urine pH Ur Specific [place] Urine Protein Urine Ketones Urine Blood Urine Nitrite Urine Bilirubin Urine Urobilinogen Ur Leukocyte Esterase Urine RBC Urine WBC Ur Epithelial Cells Urine Crystals Urine Bacteria Urine Casts Urine Mucus Ur Culture Indicated? Urine Glucose 12/20/19 12/20/19 04:20 05:30 WBC RBC Hgb Hct MCV MCH MCHC RDW Plt Count MPV Immature Gran % Neutrophils % Lymphocytes % Monocytes % Eosinophils % Basophils % Nucleated RBC % Absolute Neutrophils Absolute Lymphocytes Absolute Monocytes Absolute Eosinophils Absolute Basophils PT INR APTT 23.6 Sodium Potassium Chloride Carbon Dioxide Anion Gap BUN Creatinine Estimated GFR/1.73 m2 Glucose Calcium Total Bilirubin AST ALT Alkaline Phosphatase Troponin I Total Protein Albumin TSH Free T4 Urine Color Yellow Urine Clarity Clear Urine pH 7.0 Ur Specific [place] 1.015 Urine Protein Negative Urine Ketones Negative Urine Blood Negative Urine Nitrite Negative Urine Bilirubin Negative Urine Urobilinogen 0.2 Ur Leukocyte Esterase Small H Urine RBC Negative Urine WBC 0-2 Ur Epithelial Cells Rare Urine Crystals Negative Urine Bacteria Rare Urine Casts Negative Urine Mucus Negative Ur Culture Indicated? Yes Urine Glucose Negative Last Vital Signs Temp 36.8 C 12/20/19 04:08 Pulse 72 12/20/19 05:51 Resp 14 12/20/19 05:51 BP 188/62 H 12/20/19 05:51 Pulse Ox 98 12/20/19 05:51 COVID-19 Screening Have you,or household,traveled outside [place] in last 14 days?: No Had IN PERSON contact w/suspected or confirmed C-19 person: No
[2019-12-20] MEDS: Escitalopram 10 MG TAB PO (08:05)
[2019-12-20] MEDS: Atorvastatin 10 MG TAB PO (08:06)
[2019-12-20] MEDS: Metoprolol CR 50 MG TABCR PO (08:06)
[2019-12-20] MEDS: amLODIPine 5 MG TAB 2.5 MG PO (08:06)
--- NOTE | 2019-12-20 09:46 | PDOC.CMIN ---
- If Service Date Differs Date of service: 12/20/19 Time of Service: 14:29 Care Management Initial Assess REASON FOR HOSPITALIZATION:: Stroke PAST MEDICAL HISTORY/PAST SURGICAL HISTORY:: HTN, acid reflux, lactose intolerant, hx Polio; left sided throat weakness PREVIOUS FUNCTIONAL STATUS/SOCIAL/FAMILY SUPPORTS:: Keiko resides in [place], [place] with her , Tay. They report having three adult sons, as well as a grand daughter and two grandsons. They enjoy spending time on their porch, but have been mostly socially isolating due to Covid. Keiko is independent at baseline in the community. CURRENT FUNCTIONAL STATUS:: Keiko is sitting up in her chair, having lunch with her . Both are pleasant in interaction and forthcoming with information. ADVANCE DIRECTIVES:: None on file at [facility]. Has patient been provided with info about the portal/API?: Yes Did the patient sign up for the portal?: No CODE STATUS:: Full Code INSURANCE COVERAGE / FINANCIAL ISSUES:: Medicare. for Life PRIMARY CARE PHYSICIAN:: Jeane Ruiz POTENTIAL DISCHARGE NEEDS:: Further evaluation for CVA/TIA work up. PATIENT/FAMILY EDUCATION NEEDS:: Review of discharge instructions, discuss Ask Me Three. ANTICIPATED BARRIERS TO DISCHARGE:: None identified. TRANSPORTATION:: Via private vehicle with her . PLAN:: Anticipate Keiko will return home when ready per MD. She will have work up and evaluations to determine further discharge planning considerations. CM continues to follow.
[2019-12-20] MEDS: hydroCHLOROthiazide 12.5 MG TAB PO (10:09)
[2019-12-20] MEDS: LORazepam 0.5 MG TAB PO (10:51)
--- NOTE | 2019-12-20 11:00 | PHA.REVIEW ---
Pharmacy Admission Review - Admission Clinical Review (Last Reviewed 12/20/19 @ 06:28 by Jarret Walters MD) Hypertensive emergency (Acute) Stroke-like symptom (Acute) Numbness on right side (Acute) codeine Adverse Reaction (Unverified 12/20/19 04:16) nausea Sulfa (Sulfonamide Antibiotics) Adverse Reaction (Unverified 12/20/19 04:16) GI upset - Renal Dosing Renal Dosing: BUN 16 mg/dL (7-18) 12/20/19 04:20 Creatinine 1.16 mg/dL (0.55-1.02) H 12/20/19 04:20 Medications needing adjustments: Reviewed (ICU to update weight but no meds that would require any adjustment) List of meds needing interventions: meds ok - Anticoagulation Anticoagulation: Hgb 13.3 g/dL (11.2-15.7) 12/20/19 04:20 Hct 41.2 % (36.0-46.0) 12/20/19 04:20 Plt Count 375 10^3/uL (130-400) 12/20/19 04:20 INR 1.0 (0.9-1.1) 12/20/19 04:20 Creatinine 1.16 mg/dL (0.55-1.02) H 12/20/19 04:20 DVT Prohphylaxis: Reviewed Medications: Aspirin - Opiate Usage Evaluate Pain Scale/Pains Meds: N/A - Relevant Labs Sodium 141 mmol/L (136-145) 12/20/19 04:20 Potassium 3.8 mmol/L (3.5-5.1) 12/20/19 04:20 Chloride 103 mmol/L (98-107) 12/20/19 04:20 Electrolytes, C-Reactive P, ESR: Reviewed - DM Control DM Control: Glucose 138 mg/dL (74-106) H 12/20/19 04:20 Finger Stick Blood Glucose 111 Finger Stick Blood Glucose 142 Insulin Dosing: N/A - Heart Failure/RI Heart Failure/RI: Troponin I Cancelled 12/20/19 07:16 EF%, AMILCAR's, B-Blockers, Diuretics: Reviewed - BP Control BP Control: Blood Pressure 182/58 Blood Pressure 197/63 Blood Pressure 193/67 Blood Pressure 208/80 Blood Pressure 212/70 Blood Pressure 211/70 Blood Pressure 185/65 Blood Pressure 189/58 Blood Pressure 185/65 Blood Pressure 175/66 Blood Pressure 182/58 Blood Pressure 178/65 Blood Pressure 181/66 Blood Pressure 193/62 Blood Pressure 183/59 Blood Pressure 169/66 Blood Pressure 185/60 Blood Pressure 189/68 Blood Pressure 197/67 Blood Pressure 162/89 Blood Pressure 178/71 Blood Pressure 194/62 Blood Pressure 183/76 Blood Pressure 165/70 Blood Pressure 170/55 Blood Pressure 188/62 Blood Pressure 194/69 Blood Pressure 208/65 Blood Pressure 199/76 Blood Pressure 191/67 Blood Pressure 193/61 Blood Pressure 184/61 Blood Pressure 197/66 Blood Pressure 200/73 Blood Pressure 199/68 Blood Pressure 200/64 Blood Pressure 203/64 Blood Pressure 241/82 If elevated: Reviewed List meds needing interventions: Labetolol 20mg q1h prn, nicardipine gtt ordered; amlodipine 2.5mg one time dose given this AM but not ordered as scheduled - Qtc Review If Elevated: Reviewed (QTc 431) - IV to PO Switch IV Medications: Reviewed - Home Meds Home Med List reviewed: Reviewed Relevent Home Meds Not ordered & why?: all ordered - Current meds Current Medication Order Review: Reviewed - Comments Comments/Follow Ups: plavix ordered, nicardipine drip paused, only one time dose of amlodipine ordered
[2019-12-20 11:13] LABS: Calculated LDL 103 mg/dL (<100); Cholesterol 181 mg/dL (<200); HDL Cholesterol 52 mg/dL (40-60); Triglyceride 130 mg/dL (<150)
--- NOTE | 2019-12-20 11:15 | CHAPLAIN ---
Keiko was up in a chair and visiting with her , Tay, when I stopped in. Keiko said she is waiting to hear about test results and was clearly nervous about anticipating when information she may receive. She said she and her arrived here last night, about 3 a.m., and neither have slept or eaten since then. I explained my role and offered support. I let Keiko's nurse, FELICE Roberson, know that I can come back anytime, especially if Keiko receives difficult news from the [facility] staff.
[2019-12-20 11:28] LABS: Hemoglobin A1C 6.3 % (<5.7)
--- NOTE | 2019-12-20 12:55 | PT.INIE ---
Date of service: 12/20/19 Time of Service: 12:55 PT Notes Visit Reasons: Stroke Physical Therapy Inpatient Initial Evaluation Date: 12/20/2019 Referring Doctor: Slavador Olivarez MD PT Orders: PT CONSULT: Safety consult for DC Precautions: Fall. Standard. Activity as tolerated. Patient Profile/Admitting Diagnosis: Keiko is a 84-year-old female who presented to the ED today with chief complaint of sudden onset right-sided tingling from the right side of her face down to her right leg. Patient is diagnosed with pure sensory stroke versus prolonged TIA. MRI of brain with finding of small localized left thalamic infarct. Head and neck CTA with impression of no acute abnormality in the cervical/cranial region. PMHX: Hypertension High cholesterol Breast cancer Bladder cancer Social History/Home Situation: Lives with in a 2-floor house with 2 steps to enter. Ambulatory with no AD [employer]. Equipment Owned/DME: None Subjective: States that initially the soles of her feet did not have much sensation which made her walking feel clumsy. THis afternoon, during thsi consult, she states that her sensation is almost back fully. She denies headache, chest pain, and dizziness. Reports two falls over the past year. Objective: General Observation: Temetry in place. IV in R UE. Mental Status: Alert and oriented x 4 Pain: None reported ROM: Right Upper Extremity: Shoulder Flexion WFL. Shoulder abduction WFL. Elbow flexion WFL. Wrist flexion WFL. Opening and closing of hand WFL. Left Upper Extremity: Shoulder Flexion WFL. Shoulder abduction WFL. Elbow flexion WFL. Wrist flexion WFL. Opening and closing of hand WFL. Right Lower Extremity: Hip flexion WFL. Hip abduction WFL. Knee flexion WFL. Ankle dorsiflexion WFL. Ankle plantarflexion WFL. Left Lower Extremity: Hip flexion WFL. Hip abduction WFL. Knee flexion WFL. Ankle dorsiflexion WFL. Ankle plantarflexion WFL. Strength: Right Upper Extremity: Shoulder flexors 4/5. Shoulder abductors 4/5. Elbow flexors 4/5. Elbow extensors 4/5. Equipment Processor strong. Left Upper Extremity: Extremity: Shoulder flexors 4/5. Shoulder abductors 4/5. Elbow flexors 4/5. Elbow extensors 4/5. Equipment Processor strong. Right Lower Extremity: Hip flexors 4-/5. Hip abductors 4-/5. Knee flexors 4-/5. Knee extensors 4-/5. Ankle dorsiflexors 4-/5. Ankle plantarflexors 4-/5. Left Lower Extremity: Hip flexors 4-/5. Hip abductors 4-/5. Knee flexors 4-/5. Knee extensors 4-/5. Ankle dorsiflexors 4-/5. Ankle plantarflexors 4-/5. Sensation: Reported that sensation to B soles are almost back to how it was but still minimially diminished Bed Mobility/Transfers: Sit to stand CGA Stand to sit CGA Bed to chair CGA Chair to bed CGA 4-stage balance test: Unable to maintain all for positions for 10 seconds indicating at high risk for falls. Gait: 80 feet with front-wheeled walker with contact-guard assist with full weight bearing. Appeared shaky initially. 1 LOB while turning to sit onto chair at end of activity. Decreased step length,. Complained of mild decrease in sensation in bilateral soles. Guarded foot flat due to full sensation in bilateral soles. Balance: Static Sitting: Normal Dynamic Sitting: Normal Static Standing: Fair Dynamic Standing: Fair Special Tests: Mobility Limitations Standardized Measure [facility] AM-PAC 6 clicks Basic Mobility Inpatient Short Form: Raw Score: 18 CMS Score: 47 deficit Informed Consent/Education: Patient instructed in purpose of PT consult and plan of care. Assessment: Keiko demonstrates functional mobility decline requiring the use of a front wheeled walker for all mobility ADL performance, decreased activity tolerance, unsteadiness gait, generalized weakness, and increased risk for falls due to admitting diagnoses. Patient presents with clinical signs and symptoms consistent with current/admitting diagnoses that have resulted to mobility limitations, gait instability, generalized weakness, and impairment of motor control as demonstrated by the following impairment level findings: 1. Decreased strength to B UE/LE major muscle groups 2. Impaired standing balance 3. Impaired activity tolerance Impairments are contributing to the following functional limitations: 1. Dependent bed mobility skills 2. Increased dependence with transfers 3. Inability to safely ambulate without assistive device and physical assistance 4. Increase completion time for mobility ADL performance 5. Increased fall risk 6. Inability to negotiate steps alone safely Patient is assessed as a 20814 moderate complexity based on the following: History: 84-year-old female with impairment level findings, functional limitations, and past medical history as indicated above Examination: Demonstrable impairment in strength, balance, and mobility level with underlying impairments and functional limitations as documented above Presentation:Evolving Decision Makin moderate complexity Goals: Goals X1 week 1. Supine-Sit independent 2. Sit-Supine independent 3. Sit-Stand independent 4. Stand-Sit independent 5. Bed-Chair independent 6. Chair-Bed independent 7. Independent gait on level surface with use of least restrictive device for at least 300 feet without report of pain nor dyspnea 8. Independent stair negotiation while holding onto bilateral rails for at least 10 steps without report of pain nor dyspnea 9. Good static and dynamic standing balance/tolerance Plan of Care/Treatment Plan: 1-2x/day, 7 days/week x 1 week. Plan of care has been reviewed with the [employer] providing the service under Physical Therapy direction. Initiate Physical Therapy intervention for strengthening, bed mobility, transfers, gait, stairs, balance training, use of assistive device. DISCHARGE RECOMMENDATIONS: Patient will benefit from home health PT services in order to progress mobility level using least restrictive assistive ambulatory device, assess home safety, identify additional equipment needs, and establish a functional maintenance program that will increase ability of patient to remain at home. TREATMENT CODE/TIME: 65278 x 25 minutes beginning at 12:55 PM. Thank you for the opportunity to participate in the care of this patient. Brittny Liu PT, DPT, CLT [facility] [place], [place]
[2019-12-20] MEDS: Clopidogrel 300 MG TAB PO (15:45)
--- NOTE | 2019-12-20 16:48 | W.PM.PROGNOT ---
Date of Service Date of service: 12/20/19 Time of Service: 09:00 Assessment and Plan Assessment and plan (1) Stroke: Status: Chronic Assessment and plan: Patient was given aspirin 325 mg in the emergency department. Blood pressure was brought under reasonable control with combination of labetalol, amlodipine, nicardipine. Goal is to maintain her systolic blood pressure greater than or equal to 160 but under 200. Patient is already on atorvastatin 10 mg daily. Have increased his dose to 40 mg nightly. Patient will be started on Plavix 300 mg loading dose today and then 75 mg daily thereafter. Will check on results of echocardiogram and MRI of her brain. Neurology consultation has been requested. Will consult with physical therapy, Occupational Therapy, speech therapy. Check glycohemoglobin A1c to assess for occult diabetes mellitus. Check lipid profile. Obtain outpatient sleep study and cardiac event recorder. Time spent with the patient and her this morning was 1 hour Qualifiers: CVA mechanism: unspecified Qualified Code(s): I63.9 - Cerebral infarction, unspecified (2) Hypertensive emergency: Status: Acute Subjective Subjective Interval history since last seen: See Dr. Jarret Wlaters's admission H&P for details. Patient presented with acute onset of right sided facial and right arm and right leg paresthesias and clumsiness with walking although no focal weakness in her legs. No associated headache chest pain or shortness of breath. Onset of the paresthesias was around 2:30 AM when she got up to go the bathroom to void. She felt fine when she got up to the bathroom but when she went back to bed and was lying down she noticed the symptoms. Noncontrast CT scan of the head was negative, CTA of the head and neck showed no acute focal stenosis or aneurysm. Patient symptoms have been getting progressively better. She was found to be severely hypertensive with systolic blood pressures of 240 on admission. She was treated with labetalol and subsequently nicardipine drip in the emergency department and has since been weaned off of the nicardipine. Dr. Walters treated with amlodipine 2.5 mg p.o. and restart her metoprolol and hydrochlorothiazide. Patient has no visual symptoms no headache and no focal weakness. Exam Narrative Exam Narrative: Elderly female who is alert and oriented person place time circumstance. Speech is clear and coherent non-dysarthric. No facial asymmetry full extraocular motions intact no scleral icterus visual garber grossly intact to confrontation. Neck is supple nontender no JVD normal carotid pulses no bruits Lungs are clear to auscultation Heart regular rate and rhythm without murmur rub or gallop. Abdomen soft and nontender. Neuro exam reveals no focal cranial nerve deficits. She has normal facial mimetic muscle movement. Normal mastication muscle strength. Tongue is midline and she is able to move it in all directions without any weakness. No facial droop. Visual garber grossly intact. Shoulder shrug is normal. Upper and lower extremity strength is normal to proximal and distal muscle manual testing. Intrinsic muscles of her hands were normal. Sensory exam is intact light touch of her face but diminished to light touch and pinprick over her right forearm and hand as well as over her distal leg and right foot. Sensory exam is intact on the left side. Objective Last Vital Signs Temp 36.8 C 12/20/19 11:50 Pulse 61 12/20/19 16:01 Resp 15 12/20/19 16:01 BP 147/60 H 12/20/19 16:01 Pulse Ox 97 12/20/19 14:36 Laboratory Results - last 24 hr 12/20/19 12/20/19 12/20/19 04:20 04:20 04:20 WBC 10.17 RBC 4.74 Hgb 13.3 Hct 41.2 MCV 86.9 MCH 28.1 MCHC 32.3 RDW 13.1 Plt Count 375 MPV 10.5 Immature Gran % 0.2 Neutrophils % 55.7 Lymphocytes % 29.7 Monocytes % 11.7 Eosinophils % 1.8 Basophils % 0.9 Nucleated RBC % 0 Absolute Neutrophils 5.67 Absolute Lymphocytes 3.02 Absolute Monocytes 1.19 H Absolute Eosinophils 0.18 Absolute Basophils 0.09 PT 10.2 INR 1.0 APTT Sodium 141 Potassium 3.8 Chloride 103 Carbon Dioxide 27.1 Anion Gap 10.9 BUN 16 Creatinine 1.16 H Estimated GFR/1.73 m2 44.73 Glucose 138 H Hemoglobin A1c Calcium 9.3 Total Bilirubin 0.4 AST 18 ALT 14 Alkaline Phosphatase 107 Troponin I < 0.05 Total Protein 6.9 Albumin 3.3 L Triglycerides Total Cholesterol LDL Cholesterol, Calc HDL Cholesterol TSH 10.09 H Free T4 0.85 Urine Color Urine Clarity Urine pH Ur Specific [place] Urine Protein Urine Ketones Urine Blood Urine Nitrite Urine Bilirubin Urine Urobilinogen Ur Leukocyte Esterase Urine RBC Urine WBC Ur Epithelial Cells Urine Crystals Urine Bacteria Urine Casts Urine Mucus Ur Culture Indicated? Urine Glucose 12/20/19 12/20/19 12/20/19 04:20 04:20 04:20 WBC RBC Hgb Hct MCV MCH MCHC RDW Plt Count MPV Immature Gran % Neutrophils % Lymphocytes % Monocytes % Eosinophils % Basophils % Nucleated RBC % Absolute Neutrophils Absolute Lymphocytes Absolute Monocytes Absolute Eosinophils Absolute Basophils PT INR APTT 23.6 Sodium Potassium Chloride Carbon Dioxide Anion Gap BUN Creatinine Estimated GFR/1.73 m2 Glucose Hemoglobin A1c 6.3 H Calcium Total Bilirubin AST ALT Alkaline Phosphatase Troponin I Total Protein Albumin Triglycerides 130 Total Cholesterol 181 LDL Cholesterol, Calc 103 H HDL Cholesterol 52 TSH Free T4 Urine Color Urine Clarity Urine pH Ur Specific [place] Urine Protein Urine Ketones Urine Blood Urine Nitrite Urine Bilirubin Urine Urobilinogen Ur Leukocyte Esterase Urine RBC Urine WBC Ur Epithelial Cells Urine Crystals Urine Bacteria Urine Casts Urine Mucus Ur Culture Indicated? Urine Glucose 12/20/19 12/20/19 05:30 07:16 WBC RBC Hgb Hct MCV MCH MCHC RDW Plt Count MPV Immature Gran % Neutrophils % Lymphocytes % Monocytes % Eosinophils % Basophils % Nucleated RBC % Absolute Neutrophils Absolute Lymphocytes Absolute Monocytes Absolute Eosinophils Absolute Basophils PT INR APTT Sodium Potassium Chloride Carbon Dioxide Anion Gap BUN Creatinine Estimated GFR/1.73 m2 Glucose Hemoglobin A1c Calcium Total Bilirubin AST ALT Alkaline Phosphatase Troponin I Cancelled Total Protein Albumin Triglycerides Total Cholesterol LDL Cholesterol, Calc HDL Cholesterol TSH Free T4 Urine Color Yellow Urine Clarity Clear Urine pH 7.0 Ur Specific [place] 1.015 Urine Protein Negative Urine Ketones Negative Urine Blood Negative Urine Nitrite Negative Urine Bilirubin Negative Urine Urobilinogen 0.2 Ur Leukocyte Esterase Small H Urine RBC Negative Urine WBC 0-2 Ur Epithelial Cells Rare Urine Crystals Negative Urine Bacteria Rare Urine Casts Negative Urine Mucus Negative Ur Culture Indicated? Yes Urine Glucose Negative
--- NOTE | 2019-12-20 16:50 | NCONE_ITS ---
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 Castillo is an 84 year-old, right-handed woman who was admitted with right hemisensory changes secondary to a left thalamic ischemic stroke in the setting of profound hypertension, likely due to small vessel disease, however, cannot rule out cardioembolus. She has a new diagnosis of pre-diabetes. BP continues to be her biggest issue. Would not go below 160 as we are still in the first 24 hours of her event. Continue permissive hypertension. Continue aspirin 81mg + clopidogrel 75mg daily x30 days, after which she can switch to clopidogrel 75mg daily. At discharge, ok to reduce atorvastatin to 20mg daily for goal LDL <70. I also recommend further testing with 30 monitor car operator at discharged. She should follow-up in the neurology clinic in 4-6 weeks. History of Present Illness History of Present Illness Chief Complaint: stroke Narrative: Handedness: right. HPI: Ms. 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 Ms. Castillo was admitted to [facility] after awakening in the preparer hours with new right hand tingling/numbness that then spread to involve the left face and leg. In the ER, her BP was 240s systolic. An EKG was SR. TSH 10.09, free T4 0.85, Cr 1.16. She was not a candidate for tPA due to mild/improving symptoms. She had already taken aspirin at home prior to ER arrival. Of note, she takes 81mg aspirin 2x/week at home along with atorvastatin 10mg daily. She was loaded with 300mg Plavix along with 81mg aspirin daily. Atorvastatin was increased to 40mg upon admission. Her BP was brought down initially in to the 190s with a Nicardipine drip. BP now 160s. She has undergone the work-up as below: Work-up: -CTH: no acute findings. I reviewed these images personally. -MRI brain: small left thalamic acute infarct. Mild chronic small vessel disease changes. I reviewed these images personally. -CTA head/neck: no significnat findings. I reviewed these images personally. -TTE: EF 60%, no wall motion abnormalities, LA normal. Bubble not done. -Labs: A1c 6.3, LDL 103 -Tele: SR Consults Requesting physician: Salvador Olivarez Review of Systems All systems reviewed & are unremarkable except as noted in HPI and below PFSH Medical History Bladder cancer Breast cancer Hyperlipidemia Hypertension Polio spinobulbar with dysphagia, L arm/R leg weakness; at age 18 TIA (transient ischemic attack) Surgical History S/P left mastectomy Social History Smoking/Tobacco Use Status: Former Tobacco Use Alcohol Intake: never Drug use: Never Substance use type: does not use Household members: spouse Do you feel safe at home: Yes Do you feel safe in your relationship?: Yes Visit Medication and Allergies Active Medications Generic Name Dose Route Start Last Admin Trade Name Freq PRN Reason Stop Dose Admin Aspirin 81 mg 12/21/19 08:30 Aspirin E.C. 81 Mg Tabec PO DAILY [facility] Atorvastatin Calcium 80 mg 12/21/19 08:30 Atorvastatin 40 Mg Tab PO DAILY [facility] Clopidogrel Bisulfate 75 mg 12/21/19 08:30 Clopidogrel 75 Mg Tab PO DAILY [facility] Dimethicone/Zinc Oxide 0 gm 12/20/19 06:37 Reilly Protect Cream 142 Gm Tube TP PRN PRN Escitalopram Oxalate 10 mg 12/20/19 08:30 12/20/19 08:05 Escitalopram 10 Mg Tab PO 10 mg DAILY MICKY Administration Hydrochlorothiazide 12.5 mg 12/20/19 08:30 12/20/19 10:09 Hydrochlorothiazide 12.5 Mg Tab PO 12.5 mg DAILY MICKY Administration Nicardipine HCl 25 mg/ Sodium 250 mls @ 50 mls/hr 12/20/19 05:00 12/20/19 06:10 Chloride IV 0 mg/hr INFUSION MCIKY 0 mls/hr Titration Protocol 5 MG/HR Sodium Chloride 500 mls @ 250 mls/hr 12/20/19 16:46 Saline 1000ml Bag IV 12/20/19 18:45 BOLUS ONE Iohexol 100 ml 12/20/19 06:00 12/20/19 05:50 Omnipaque 350 Mg/Ml 100 Ml Btl IJ 01/19/20 23:59 85 ml DIRECTED MICKY Administration Labetalol HCl 20 mg 12/20/19 11:30 Labetalol 100 Mg/20 Ml Vial IVP Q1H PRN PRN Metoprolol Succinate 50 mg 12/20/19 08:30 12/20/19 08:06 Metoprolol Cr 50 Mg Tabcr PO 50 mg DAILY MICKY Administration Patient's Own 1 each 12/20/19 08:30 12/20/19 09:05 Medication ( PO 1 each Rabeprazole 20mg BID MICKY Administration Tablet) Allergies codeine Adverse Reaction (Unverified 12/20/19 04:16) nausea Sulfa (Sulfonamide Antibiotics) Adverse Reaction (Unverified 12/20/19 04:16) GI upset Exam Narrative Exam Narrative: Physical Exam: Gen: Patient of apparent stated age, NAD Head and face: no facial or cranial abnormalities Neck: Supple, no meningismus, no occipital tenderness CV: + S1, S2, RRR, no murmur Resp: CTA B/L Abd: soft, nontender, nondistended Ext: No edema. No clubbing or cyanosis. No bony deformity. Neuro Exam: Language: fluency, naming, repetition, and comprehension intact; Mental Status: AAOx3, current events intact, fund of knowledge intact; Speech: subtle dysarthria Cranial nerves: Funduscopy: not performed CN II: visual garber intact CN III, IV, : extraocular movements intact, no nystagmus, pupils symmetric and reactive to light CN V: face sensation reduced to LT and PP in R V1-V3 CN VII: no facial asymmetry noted CN VIII: hearing intact bilaterally CN IX, X: palate rises symmetrically CN XI: trapezius/SCM 5/5 bilaterally CN XII: protrudes tongue symmetrically Sensory: intact to LT, PP, vibration, and joint position in all extremities, absent Romberg Motor: bulk and tone intact. Fine motor movements reduced bilaterally. No p ronator drift. Strength 5/5 throughout except 4+/5 left hip flexor. Reflexes: 2+ at the biceps, triceps, and brachioradialis; reduced at the patella and achilles tendons bilaterally; toes down going on the left and neutral on the right; Coordination: HTS intact bilaterally; FTN with mild dysmetria bilaterally Gait: deferred Results Last Vital Signs Temp 36.8 C 12/20/19 11:50 Pulse 61 12/20/19 16:01 Resp 15 12/20/19 16:01 BP 147/60 H 12/20/19 16:01 Pulse Ox 97 12/20/19 14:36 Labs Result diagrams: 12/20/19 04:20 12/20/19 04:20 Labs: Laboratory Results - last 24 hr 12/20/19 12/20/19 12/20/19 04:20 04:20 04:20 WBC 10.17 RBC 4.74 Hgb 13.3 Hct 41.2 MCV 86.9 MCH 28.1 MCHC 32.3 RDW 13.1 Plt Count 375 MPV 10.5 Immature Gran % 0.2 Neutrophils % 55.7 Lymphocytes % 29.7 Monocytes % 11.7 Eosinophils % 1.8 Basophils % 0.9 Nucleated RBC % 0 Absolute Neutrophils 5.67 Absolute Lymphocytes 3.02 Absolute Monocytes 1.19 H Absolute Eosinophils 0.18 Absolute Basophils 0.09 PT 10.2 INR 1.0 APTT Sodium 141 Potassium 3.8 Chloride 103 Carbon Dioxide 27.1 Anion Gap 10.9 BUN 16 Creatinine 1.16 H Estimated GFR/1.73 m2 44.73 Glucose 138 H Hemoglobin A1c Calcium 9.3 Total Bilirubin 0.4 AST 18 ALT 14 Alkaline Phosphatase 107 Troponin I < 0.05 Total Protein 6.9 Albumin 3.3 L Triglycerides Total Cholesterol LDL Cholesterol, Calc HDL Cholesterol TSH 10.09 H Free T4 0.85 Urine Color Urine Clarity Urine pH Ur Specific [place] Urine Protein Urine Ketones Urine Blood Urine Nitrite Urine Bilirubin Urine Urobilinogen Ur Leukocyte Esterase Urine RBC Urine WBC Ur Epithelial Cells Urine Crystals Urine Bacteria Urine Casts Urine Mucus Ur Culture Indicated? Urine Glucose 12/20/19 12/20/19 12/20/19 04:20 04:20 04:20 WBC RBC Hgb Hct MCV MCH MCHC RDW Plt Count MPV Immature Gran % Neutrophils % Lymphocytes % Monocytes % Eosinophils % Basophils % Nucleated RBC % Absolute Neutrophils Absolute Lymphocytes Absolute Monocytes Absolute Eosinophils Absolute Basophils PT INR APTT 23.6 Sodium Potassium Chloride Carbon Dioxide Anion Gap BUN Creatinine Estimated GFR/1.73 m2 Glucose Hemoglobin A1c 6.3 H Calcium Total Bilirubin AST ALT Alkaline Phosphatase Troponin I Total Protein Albumin Triglycerides 130 Total Cholesterol 181 LDL Cholesterol, Calc 103 H HDL Cholesterol 52 TSH Free T4 Urine Color Urine Clarity Urine pH Ur Specific [place] Urine Protein Urine Ketones Urine Blood Urine Nitrite Urine Bilirubin Urine Urobilinogen Ur Leukocyte Esterase Urine RBC Urine WBC Ur Epithelial Cells Urine Crystals Urine Bacteria Urine Casts Urine Mucus Ur Culture Indicated? Urine Glucose 12/20/19 12/20/19 05:30 07:16 WBC RBC Hgb Hct MCV MCH MCHC RDW Plt Count MPV Immature Gran % Neutrophils % Lymphocytes % Monocytes % Eosinophils % Basophils % Nucleated RBC % Absolute Neutrophils Absolute Lymphocytes Absolute Monocytes Absolute Eosinophils Absolute Basophils PT INR APTT Sodium Potassium Chloride Carbon Dioxide Anion Gap BUN Creatinine Estimated GFR/1.73 m2 Glucose Hemoglobin A1c Calcium Total Bilirubin AST ALT Alkaline Phosphatase Troponin I Cancelled Total Protein Albumin Triglycerides Total Cholesterol LDL Cholesterol, Calc HDL Cholesterol TSH Free T4 Urine Color Yellow Urine Clarity Clear Urine pH 7.0 Ur Specific [place] 1.015 Urine Protein Negative Urine Ketones Negative Urine Blood Negative Urine Nitrite Negative Urine Bilirubin Negative Urine Urobilinogen 0.2 Ur Leukocyte Esterase Small H Urine RBC Negative Urine WBC 0-2 Ur Epithelial Cells Rare Urine Crystals Negative Urine Bacteria Rare Urine Casts Negative Urine Mucus Negative Ur Culture Indicated? Yes Urine Glucose Negative
[2019-12-21] VITALS (32 sets, daily range): BP systolic 137–192; BP diastolic 49–75; PULSE 62–76; RESP 11–22; TEMP 36.4–37.1; O2SAT 95–98
[2019-12-21] MEDS: Labetalol 100 MG/20 ML VIAL 10 MG IVP (05:56)
[2019-12-21] MEDS: Normal Saline Flush 10 ML SYR ×2 (06:09→17:53)
--- NOTE | 2019-12-21 07:51 | OTIE_ITS ---
Occupational Therapy Notes Inpatient Occupational Therapy Evaluation Date: 12/21/19 Referring Doctor: Salvador Olivarez MD OT Orders: Urgent, Fall Safety Assessment Precautions: Fall, Standard, Full PATIENT PROFILE/ADMITTING DIAGNOSIS: Pt is an 84 year old female who presented to the ER on 12/19 with c/o tingling. She had a neuro consultation by Dr. Jerome who states that pt had a (L) thalmic ischemic stroke. She was admitted to Med Surg for a dx of Pre Diabetes, thrombotic stroke involving middle cerebral artery, Stroke, hypertensive emergency, numbness (R) side both UE/LE. Past Medical History- Medical History Bladder cancer Breast cancer Hyperlipidemia Hypertension Polio spinobulbar with dysphagia, L arm/R leg weakness; at age 18 TIA (transient ischemic attack) Surgical History S/P left mastectomy Social History/Home Situation: Pt lives in a private home with her , she has 3 sons, and grandchildren. She reports that she is (I) at her baseline level of function and has a tub shower. She states that she has stairs into her home to the second floor to her bathroom and closet. She states that she is (I) with driving and notes that she enjoys spending her time being outdoors and spending time with her . Equipment owned/DME: grab bars SUBJECTIVE: Pt was lying in bed when OT arrived. She was agreeable to OT session and notes that she is feeling a little better today. OBJECTIVE: General Observation: Pleasant, able to answer questions appropriately, telemetry Mental Status: A&Ox3 Pain: no c/o pain ROM: RUE AROM WFL L UE AROM WFL STRENGTH: RUE Shoulder flexion 3+/5, bicep 4/5, tricep 4-/5, lead infrastructure architect is symmetrical LUE Shoulder flexion 4/5, bicep 4/5, tricep 4-/5, lead infrastructure architect is symmetrical SENSATION: Decreased sensation in (R) UE/LE FUNCTIONAL MOBILITY/ADLS: Transfers with FWW Supine-sit (I) Sit-Stand CGA, FWW Stand-sit CGA, FWW Bed-Sink CGA, FWW Sink-Chair CGA, FWW BATHING sitting on side of the bed with max (A) Set up/clean up Bathing UE (I) with UE with use of (R) UE including face, (B) UE and abdomen Bathing LE (I) (B) LE DRESSING sitting on side of the bed Dressing UE Min (A) don and doffing hospital gown due to telemetry Dressing LE (I) don and doffing (B) socks with min vc for hand support for balance. GROOMING Sitting on side of the bed (I) with brushing her hair, standing at sink with min vc for hand stabilization she was (I) with brushing her teeth. TOILETING On commode with min vc she was able to (I) perform toileting hygiene, (I) with pulling underwear with vc for hand stabilization. EATING NT BALANCE: Static sitting Normal Dynamic Sitting Good Static Standing Good Dynamic Standing Fair-Good SPECIAL TESTS: Daily Activity Limitations Standardized Measure [facility] AM -PAC ?6 clicks? Daily Activity Inpatient Short Form: Raw score: 20 Standardized score: 42.03 CMS score: 38.32% INFORMED CONSENT/EDUCATION: Pt instructed in purpose of OT Consult and plan of care. ASSESSMENT: Patient is a 84-year-old female referred to occupational therapy services with diagnosis of Pre Diabetes, thrombotic stroke involving middle cerebral artery, Stroke, hypertensive emergency, numbness (R) side both UE/LE. Patient presents with clinical signs and symptoms consistent with dx, as demonstrated by the following impairment level findings: Impairments in ADL/IADL and leisure activities, decreased gross and fine motor control of (R) UE, numbness and tingling in (R) UE, decreased strength in (R) UE, decreased functional activity tolerance, decreased functional mobility required for ADL performance due to numbness in (R) LE/UE. Impairments are contributing to the following functional limitations: Decreased functional activity tolerance limiting her standing ADLs this was the case at her baseline but increased since admission, decreased functional mobility required for performance of ADLs, decreased standing ADLs without (A) at this time. AMPAC score 20, CMS score 38.32% deficit. Patient is assessed as a Low 77250 complexity based on the following: History: see above Examination: see functional limitations as noted above Presentation: evolving Decision Making: AMPAC score 20 GOALS Goals x1 week 1. Transfers (S) with FWW 2. Dressing sitting on side of the bed pt will be able to (I) don and doff her pants 3. Bathing- pt will be able to demonstrate (I) for UE/LE bathing routines 4. Toileting- on toilet (I) 5. Eating (I) 6. Pt will be able to perform her ADLs demonstrating ideal energy conservation techniques. PLAN OF CARE/TREATMENT PLAN: 1x/day, 5 days/ week x 1week Initiate Occupational Therapy Services for bathing, dressing, grooming, toileting, eating, transfer training. DISCHARGE RECOMMENDATIONS OT recommends that when pt is medically cleared per MD that she return home with HHOT for assessment of her ADLs in her home setting, need for adaptive equipment and safety in performance of both her dressing and bathing routines within her home. OT also recommends based on her fair-good static standing positions and functional mobility that pt would benefit from a shower bench to increase her ability to perform her bathing routine in her tub shower with increased safety performance and decrease her fall risk. TREATMENT TIME/MINUTES/CODES 47299, [id number], 40 minutes (07:10) Jacqueline Tobias OTR/L [facility]
[2019-12-21] MEDS: amLODIPine 2.5 MG TAB PO (08:30)
[2019-12-21] MEDS: Aspirin E.C. 81 MG TABEC PO (08:31)
[2019-12-21] MEDS: Escitalopram 10 MG TAB PO (08:31)
[2019-12-21] MEDS: Metoprolol CR 50 MG TABCR PO (08:32)
[2019-12-21] MEDS: Clopidogrel 75 MG TAB PO (08:32)
[2019-12-21] MEDS: Atorvastatin 40 MG TAB 80 MG PO (08:32)
--- NOTE | 2019-12-21 09:08 | W.PM.PROGNOT ---
Date of Service Date of service: 12/21/19 Time of Service: 09:09 Assessment and Plan Assessment and plan (1) Stroke: Status: Chronic Assessment and plan: Continue Plavix and aspirin and atorvastatin. Gradual reduction of her blood pressure by 10 to 15% over the next day. Will monitor on telemetry while she is here. Patient is requesting to return home today I told her I would reevaluate her this afternoon when to give her some more physical therapy on inpatient. If there is no progression in her symptoms I think she can probably be discharged this afternoon with continued home PT and OT. She will need a front wheel walker as well as shower chair or bench. Her atorvastatin will be downgraded to 40 mg nightly from 80 mg. However this is an increase from her home dose of 10 mg. Qualifiers: CVA mechanism: unspecified Qualified Code(s): I63.9 - Cerebral infarction, unspecified (2) Hypertensive emergency: Status: Acute Assessment and plan: Blood pressure is gradually improving. Low-dose Norvasc was added to her Toprol XL 50 mg daily. We will continue to monitor blood pressure. Review of monitor and storage bin tender reveals sinus rhythm in the 60s with no ectopy. No runs of PAF. Subjective Subjective Interval history since last seen: Patient has no symptoms increased numbness over her right cheek right hand and arm and right leg. Physical therapy evaluated her yesterday found that she does have some gait instability and balance issues which has been corrected with use of a front wheel walker. PT recommends continued physical therapy upon discharge to work on her gait and balance. Occupational Therapy evaluated her this morning and is recommending continued OT upon discharge and provision of a shower chair or bench because of her balance issues. Patient was treated in the strategic sourcing manager hours with some IV labetalol 10 mg for systolic blood pressure in the 190s. I do not feel that her blood pressure needs to be treated unless she has a sustained systolic blood pressure over 210. I started on low-dose Norvasc 2.5 mg daily in addition to her Toprol-XL 50 mg daily. I think if we can sustain a blood pressure in the 160-180 range this would be ideal for couple days. Patient would like to return home and I think if she does well with physical therapy today she can be discharged this afternoon. She will need a cardiac event recorder over the next month to look for paroxysmal atrial fibrillation. She will need an outpatient sleep study to evaluate for sleep apnea. She will remain on Plavix and aspirin for the next month. Patient did request that her pills be crushed whenever possible as she has had chronic dysphasia problems from her previous polio. Exam Narrative Exam Narrative: Elderly female alert and oriented to person place and time and circumstance. She seems somewhat tremulous in her hands. However when I had her hold her hands out she had no drift and no intention tremor. I had her stand up which she did on her own although she required use of her arms to push herself up off the chair. Romberg was negative. HEENT is unremarkable no facial asymmetry no dysarthric speech. Sensory exam over the face was remarkable for decreased sensation of her cheek. Upper extremity reveals equal strength in proximal and distal muscle groups. Normal hand starch crab strength normal forearm and upper arm strength including shoulder shrug. Manual muscle testing of her lower extremities reveals normal hip flexion extension as well as dorsiflexion plantarflexion her feet. Sensory exam of her lower extremities reveals diminished sensation to light touch over her right lower lateral leg and foot. Objective Last Vital Signs Temp 37.1 C 12/21/19 07:50 Pulse 64 12/21/19 06:26 Resp 18 12/21/19 06:15 BP 169/61 H 12/21/19 06:26 Pulse Ox 96 12/21/19 06:15 Laboratory Results - last 24 hr 12/20/19 12/20/19 04:20 04:20 Hemoglobin A1c 6.3 H Triglycerides 130 Total Cholesterol 181 LDL Cholesterol, Calc 103 H HDL Cholesterol 52
[2019-12-21] MEDS: Fosfomycin Tromethamine 3 GM PACKET PO (09:51)
--- NOTE | 2019-12-21 09:53 | CMDISCH_ITS ---
LACE Index Scoring Tool - Questions: Length of Stay (in days): 1 Acuity (Admit via E.D.?): Yes Comorbidities: Any Tumor E.D. Visits: 1 - Answers: Total Score: 7 Risk of Readmission: Low Risk Care Management Discharge Reason for Hospitalization: Stroke Discharge Plan: Keiko will return home when ready per MD. She will have new orders for [facility] services including RN/PT/OT, as well as a FWW for support with ambulation; provided by this business writer. Keiko will follow up with her PCP and transport via private vehicle with her . Patient/Family Education Needs: Review of discharge instructions, home health services, discuss Ask Me [facility]. Services Needed at Discharge: Home Health Care Services (RN/PT/OT. )
--- NOTE | 2019-12-21 10:10 | PT.INTREAT ---
Date of service: 12/21/19 Time of Service: 10:10 PT Notes Visit Reasons: Stroke Inpatient Physical Therapy Treatment Note [facility] Date: 12/21/2019 PRECAUTIONS: Fall, Activity as Tolerated SUBJECTIVE: Keiko states that she is feeling a little bit better today, she feels her balance has improved since yesterday. She states that she feels nervous about how I will manage at home referring to her unsteadiness. OBJECTIVE: PAIN: No c/o pain BED MOBILITY/TRANSFERS Supine-sit: I with HOB flat Sit-supine: I with HOB flat Sit-stand: SBA Stand-sit: SBA Bed-Chair: SBA Chair-bed: SBA GAIT Assistive Device: FWW Weight bearing: Full Assist: CGA Distance: 300' in both a.m. and p.m. Deviation: No LOB, step-through gait instruction THEREX: Patient was instructed in a LE strengthening and stabilization program in a supine position in a.m. and standing position in p.m, utilizing Airex pads to promote improved stability throughout LEs. She requires verbal and occasional visual instruction for appropriate exercise completion. See flow sheet for specific exercise and repetitions. STAIRS: Up/down 3x4 and 2x6 using B rails and a step-over gait pattern with CGA ASSESSMENT: Patient tolerated session well, although continues to require CGA for safety with gait training and stair negotiation. She was able to tolerate the addition of a ther ex program, completing a LE strengthening and stabilization program. PLAN: Continue with global strengthening for progression toward safe baseline level of function TREATMENT CODE/TIME: Session 1: 30 minutes; 59003, [id number] Session 2: 30 minutes; [id number], [id number]
--- NOTE | 2019-12-21 11:22 | TELEFU_ITS ---
Date of service: 12/21/19 Time of Service: 11:22 Nutritional Follow up NOTE: 84 year old female admitted with hypertensive emergency, stroke. BMI wnl for age. Labs indicate prediabetes (A1C: 6.3%), HIGHWAY TRUCK DRIVER consult pending. Following Low Sodium/ Heart healthy diet with adequate intake to meet nutrient and fluid needs. Will adjust texture per HIGHWAY TRUCK DRIVER/nursing. Will continue to follow. Time Spent in Nutritional Counseling and Treatment: 0 time spent face to face
[2019-12-21] MEDS: Normal Saline 500 ML 100 ML IV (17:43)
[2019-12-22 02:44] VITALS: BP 154/59; PULSE 66; RESP 16; TEMP 37; O2SAT 99
[2019-12-22 07:50] VITALS: BP 167/74; PULSE 60; RESP 18; TEMP 37.1; O2SAT 98
[2019-12-22] MEDS: Escitalopram 10 MG TAB PO (07:52)
[2019-12-22] MEDS: Metoprolol CR 50 MG TABCR PO (07:52)
[2019-12-22] MEDS: Clopidogrel 75 MG TAB PO (07:52)
[2019-12-22] MEDS: Aspirin E.C. 81 MG TABEC PO (07:52)
--- NOTE | 2019-12-22 09:56 | W.PM.DS.N ---
Date of service: 12/22/19 Time of Service: 09:57 DS: Diagnosis Discharge Diagnosis (1) Stroke: Start date: 12/22/19 Start time: 10:00 Status: Chronic Asessment and Plan: Continue Plavix and aspirin and atorvastatin. Continue Plavix and aspirin x 30 days, after which she will switch to clopidogrel 75 mg daily. She will need a front wheel walker as well as shower chair or bench. Her atorvastatin will be downgraded to 20 mg nightly from 80 mg. However this is an increase from her home dose of 10 mg. Will order community service specialist x 30 days per Neurology recommendation. Discharge home with PT/OT Nursing services. (2) Hypertensive emergency: Start date: 12/22/19 Start time: 10:13 Status: Acute Asessment and Plan: Allowed permissive HTN while inpatient in setting of a stroke. Patient admitted with systolic greater than 210, was able to get blood pressure under 200 for permissive HTN. Today BP is 160's systolicaly. Low dose Norvasc added to Toprol XL 50 mg daily. Follow up with PCP in week. Above case discussed with Dr. Bruce who is in agreement. Discharge Plan Disposition Patient Disposition: HOME W/HOME HEALTH SERVICE Condition: Stable Discharge Details Reason For Visit: STROKE Admit Date/Time: 12/20/19 06:37 Admit Provider: Jarret Walters Attending Provider: Jarret Walters Primary Care Provider: Jeane Ruiz [facility] Course Hospital Course: Ms. 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 ER findings, bp was 240's sytolic, EKG with SR. TSH 10.09 Free T4 0.85, Cr. 1.16. Due to improving symptoms she was not a candidate for tPA. She had taken aspirin at home prior to arriving to the ER. She was loaded with 300 mg Plavix along with [address] with no acute findings, MRI with small left thalamic acute infarct. She was admitted to ICU for further management. Atorvastatin was increased to 80 mg upon admission. Nicardipine drip brought her blood pressure down in to the 190's. At one point overnight she was treated with a dose of labetalol for systolic over 190's. She had a TTE with EFT 60%, no wall abnormalities, LA normal, Bubble not done. She should have an outpatient sleep study to evaluate for sleep apnea. A1c 6.3, LDL 103. She worked with PT/OT to gain stability.Her symptoms improved, with no worsening numbness since admission. Low dose amlodipine was added to her regimen getting her BP into the 160's on discharge. She is doing well today, She is being discharged home with PT/OT nursing service. Event recorder, sleep study order and follow up with PCP in 1 week. Follow up with Neurology in 4 weeks. Home Meds and New Rx's Prescriptions: New amlodipine 2.5 mg Tablet 2.5 mg PO DAILY Qty: 30 RF: 0 clopidogrel [Plavix] 75 mg Tablet 75 mg PO DAILY Qty: 30 RF: 0 aspirin 81 mg Tablet,Delayed Release (Dr/Ec) 81 mg PO DAILY Qty: 30 RF: 0 atorvastatin 20 mg tablet 20 mg PO QHS Qty: 30 RF: 0 Continued rabeprazole [AcipHex] 20 MG tablet,delayed release (DR/EC) 20 mg PO BID RF: 0 metoprolol succinate 50 MG tablet extended release 24 hr 50 mg PO DAILY RF: 0 cholecalciferol (vitamin D3) [Vitamin D3] 1,000 UNIT capsule 1,000 unit PO DAILY RF: 0 escitalopram oxalate [Lexapro] 5 MG/5 ML solution 10 mg PO DAILY RF: 0 hydrochlorothiazide 12.5 mg Capsule 12.5 mg PO DAILY RF: 0 Discontinued atorvastatin 10 MG tablet 10 mg PO DAILY RF: 0 aspirin [Aspirin Low-Strength] 81 MG tablet,chewable See Rx Instructions .ROUTE .COMPLEX RF: 0 Discharge Instructions Instructions: Ischemic Stroke (GEN), Chronic Hypertension (DC), Weakness (DC), DASH Eating Plan (DC), Hypertensive Crisis (DC), Hypertension in the Older Adult (DC) Additional Instructions: Follow up with PCP in 1 week Follow up with Dr. Jerome in 4-6 weeks. Take Plavix and aspirin daily x 30 days. Check with your PCP if they want you to continue plavix longer than 30 days. You will have an event recorder for 30 days, this will give information to your PCP if you have an irregular heart beat. Stick to heart health low sodium diet. Maintain blood pressure under 140. Will defer to PCP for better BP control. Activity:: Activity as Tolerated Equipment/Supplies:: No Equipment Needed Diet:: Low Sodium Discharge Orders Discharge Orders: Discharge Order (Routine); Ordered 12/22/19 Ordered By: Jeannie Shipman DS: Summary Status at Discharge Functional status at discharge: uses cane/walker Overall status at discharge: patient is progressing back to baseline Mental Status: mental status grossly normal Speech and Movement: speech and movement normal Mood: congruent mood Affect: normal affect Exam Narrative Exam Narrative: Elderly female alert and oriented to person place and time and circumstance. Romberg was negative. HEENT is unremarkable no facial asymmetry no dysarthric speech. Sensory exam over the face was remarkable for decreased sensation of her cheek. Upper extremity reveals equal strength in proximal and distal muscle groups. 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 Manual muscle testing of her lower extremities reveals normal hip flexion extension as well as dorsiflexion plantarflexion her feet. Sensory exam of her lower extremities reveals diminished sensation to light touch over her right lower lateral leg and foot. Psych Mental Status: mental status grossly normal Speech and Movement: speech and movement normal Mood: congruent mood Affect: normal affect DS: Data Vitals/I&O Vitals and I&O: Vital Signs Temperature 37.1 C 12/22/19 07:50 Temperature Source Skin 12/22/19 07:50 Pulse 60 12/22/19 07:50 Pulse Rhythm Regular 12/22/19 07:50 Pulse 65 12/21/19 16:42 Respiratory Rate 18 12/22/19 07:50 Respiratory Effort Non-Labored 12/22/19 07:50 Respiratory Depth Normal 12/22/19 07:50 Respiratory Pattern Normal 12/22/19 07:50 Blood Pressure 167/74 H 12/22/19 07:50 Blood Pressure Mean 85 12/21/19 16:42 Blood Pressure Position Supine 12/21/19 03:01 Pulse Oximetry 98 12/22/19 07:50 Oxygen Delivery Method Room Air 12/22/19 07:50 Oxygen Flow Rate 0 12/22/19 07:50 Pain Level 0 12/22/19 07:50 Comment 12/21/19 19:48 Intake & Output 12/21/19 12/21/1912/21/20 11:59 23:59 11:59 Intake Total 360 / 1340 980 / 1340 200 / 200 Output Total 800 / 975 175 / 975 300 / 300 Balance -440 / 365 805 / 365 -100 / -100 Weight 78.6 kg 78.1 kg Intake: IV 490 / 490 Oral 360 / 850 490 / 850 200 / 200 Output: Urine 800 / 975 175 / 975 300 / 300 Other: Urine Color Light Felicia Yellow Yellow Urine Appearance Clear Clear Clear Urine Odor Strong Normal Normal Comment Pt had luekocyte estrase small in urine and trace leukocyte on urine dip. No symptoms reported when I questioned the patient. Stool Occult Blood Negative Stool Size Moderate Moderate Stool Characteristics Soft Soft Formed Brown Voiding Methods Bedside Commode Bedside Commode Toilet Data Completed and Pending Completed studies during hospitalization [Text1]: COMPARISON: No exams were available for comparison FINDINGS: There is mild generalized cerebral atrophy consistent with the patient's age.. There are scattered white matter focal areas of abnormal signal consistent mild microvascular ischemic changes. The orbital and temporal bone structures appear intact as does the pituitary. Diffusion weighted imaging shows small focal area of abnormal signal in left thalamus period ADC map shows decreased signal at this site consistent with acute to subacute infarction. Susceptibility weighted imaging shows couple of small focal areas of abnormal signal in the basal ganglia bilaterally which are likely to represent calcifications. No gross hemorrhagic seen. There is normal flow void in the [place] vasculature. 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 No other acute change. Indications: CVA Other Information Study Quality: Good Conclusion Left Ventricle : The left ventricle is normal size. The left ventricular systolic function is normal. The left ventricular ejection fraction is within the normal range. There is normal left ventricular wall thickness. There is normal LV segmental wall motion. The left ventricular diastolic function is normal. LVEF is 60%. Right Ventricle : The right ventricle is normal size. The right ventricular systolic function is normal. The RVSP is 45.5mmHg. Atria : The left atrium size is normal. The right atrium size is normal. Mitral Valve : Mild mitral annular calcification. No evidence of mitral valve stenosis. Mild mitral regurgitation. Great Vessels : The aortic root is normal in size. The ascending aorta is mildly dilated. Aortic arch is normal in caliber. IVC is normal in size and collapses >50% with inspiration. Please see remainder of study for further details. Compared to study from 07/18/2018: There is no significant change. EXAM: XR CHEST 2V PA LATERAL CLINICAL HISTORY: right sided tingling, eval for mediastinal widenin TECHNIQUE: 2D digital imaging was performed. COMPARISON: CR XR RIBS LT W PA LAT CHEST from 01/02/2019 FINDINGS: The heart is not enlarged. The lungs are clear and well expanded. No pleural effusion seen. Mediastinal contours appear intact. Prior left mastectomy noted. IMPRESSION: Normal chest post left mastectomy. EXAM: CT BRAIN NECK CTA CLINICAL HISTORY: right sided whole body tingling, r/o stroke/anyuri. TECHNIQUE: Imaging Protocol: Axial CT angiography was performed with multi-slice acquisition and multi-planar and/or 3D reconstructions. CONTRAST MATERIAL: Intravenous: Omnipaque 350 Contrast volume:structured data in ml COMPARISON: No exams were available for comparison FINDINGS: CT angiography of the cervical cranial region was performed according to the usual protocol. Initial noncontrast scanning of the head is unremarkable except for mild atrophy consistent with age.. Visualized lung apices are clear. Visualized portions of thoracic aorta and pulmonary arterial circulation are unremarkable. There is no evidence of a cervical mass or adenopathy. The tracheal laryngeal structures appear intact. The common, internal, and external carotid arteries are within normal limits in the cervical region with no evidence of aneurysm, stenosis, or dissection. The vertebral arteries are unremarkable in appearance in the cervical region with no evidence of aneurysm, stenosis, or dissection. Intracranial portions of the internal carotid arteries appear normal with no evidence of aneurysm, stenosis, or dissection. Intracranial vertebral arteries and basilar artery appear normal with no evidence of aneurysm, stenosis or dissection. No aneurysm identified in the region of the [id number]. The anterior, middle, and posterior cerebral arteries and major branches appear intact with no evidence of aneurysm, stenosis, or dissection. No enhancing brain lesion identified. IMPRESSION: Negative CT angiography of the cervical cranial region. Labs on day of discharge: Labs from last 24 hours 12/20/19 07:33 COVID-19 PCR Pending Nasopharyn COVID-19 PCR Pending Ref Test Perform Site Pending Preliminary micro results at discharge 12/20/19 05:30 Urine Culture - Preliminary Urine - Reflex from Ua Gram Positive Leonor,Mixed PFSH Medical History Bladder cancer Breast cancer Hyperlipidemia Hypertension Polio spinobulbar with dysphagia, L arm/R leg weakness; at age 18 TIA (transient ischemic attack) Surgical History S/P left mastectomy Social History Smoking/Tobacco Use Status: Former Tobacco Use Alcohol Intake: never Drug use: Never Substance use type: does not use Household members: spouse Do you feel safe at home: Yes Do you feel safe in your relationship?: Yes
--- NOTE | 2019-12-22 10:58 | PDOC.HHF2F_ITS ---
Home Health Certification Home Health Certification: 1. Encounter Date and Reason I certify that DORA JOHNSTON was seen by Jeannie Shipman on 12/22/19 and that I had a [id number] encounter with this patient that meets the physician face to face encounter requirements. 2. Clinical Findings Supporting Skilled Need and Homebound Status I certify that home health services are medically necessary, include either intermittent longterm and/or physical/speech therapy, and that this patient is homebound in that absences from the home require considerable and taxing effort and are infrequent or of short duration, or are attributable to the need to receive medical care. [X] (a) Attached documentation from encounter provides clinical findings supporting skilled need and homebound status (including what assistance patient requires to leave the home). The encounter with the patient was in whole, or in part, for the following medical condition, which is the primary reason for home health care: STROKE Custodial: Patient would benefit from nursing services for medication management, bp checks, etc. Physical Therapy: Patient would benefit from PT/OT for balance stability, gait and improved weakness, etc. Homebound: Unable to leave house without assistance. 3. Certification and Authentication I certify that I composed the above information based on my clinical judgement relating to this patient's medical condition and, if applicable, clinical findings communicated to me by the AUTOMOBILE TRAVEL CLUB COUNSELOR or inpatient physician who performed the Home Health Referral. All further orders will be obtained through ____Jeane Cerna (Community Based Physician - PCP)
--- NOTE | 2019-12-22 11:41 | PT.INTREAT ---
Date of service: 12/22/19 Time of Service: 10:25 PT Notes Visit Reasons: Stroke Inpatient Physical Therapy Treatment Note [facility] Date: 12/22/2019 PRECAUTIONS: Fall, Standard, Activities as tolerated SUBJECTIVE: Feeling much better today, eager to be headed home. Got a good nights sleep last night. OBJECTIVE: PAIN: None reported BED MOBILITY/TRANSFERS Up in chair when I entered patient's room. Sit-stand: SBA Stand-sit: SBA GAIT Assistive Device: FWW Weight bearing: Full Assist: CGA Distance: 300Ft and 60ft THEREX: Worked on balance with squating, marching and heel raises on Air Ex pad under feet with SBA-CGA as needed. STAIRS: Able to ambulate up and down 3 - 4 inch steps and 2 -6 inch steps with one handrail utilizing step to gait pattern one step at a time. ASSESSMENT: Tolerated today's session well with no LOB. Focused on safety first with all activities today. PLAN: To be discharged home today with HH services provided, as needed. TREATMENT CODE/TIME: 94365 x 2, 10:25 to 10:50 am (25')
--- NOTE | 2019-12-22 11:41 | PDOC.CMDIS ---
- If Service Date Differs Date of service: 12/22/19 Time of Service: 11:41 LACE Index Scoring Tool - Questions: Length of Stay (in days): 3 Acuity (Admit via E.D.?): Yes Comorbidities: Cerebrovascular Disease, Diabetes w/o Complication E.D. Visits: 1 - Answers: Total Score: 9 Risk of Readmission: Low Risk Care Management Discharge Reason for Hospitalization: Stroke Discharge Plan: Keiko is being discharged home today she will have new home health services for nursing, PT and OT. 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 CM faxed discharge orders to Home Health. Keiko feels that she is ready for discharge and her spouse is picking her up today. Patient/Family Education Needs: Discharge education, limitations and follow up plan of care. Services Needed at Discharge: Home Health Care Services, Occupational Therapy, Physical Therapy
[2019-12-24 16:16] LABS: COVID-19 RT-PCR UVMMC Result Negative (Negative)
--- NOTE | 2019-12-25 11:14 | INDS_ITS ---
Date of service: 12/25/19 Time of Service: 11:14 PT Notes Visit Reasons: Stroke Physical Therapy Inpatient Discharge Summary Date: 12/25/2019 Dates of Service: 12/20/2019 through 12/22/2019 This is a clinical summary of care provided on the duration of dates listed above. No charge was made in the completion of this documentation. Referring Doctor: Salvador Olivarez MD PT Orders: PT CONSULT: Safety consult for DC Precautions: Fall. Standard. Activity as tolerated. Patient Profile/Admitting Diagnosis: Keiko is a 84-year-old female who presented to the ED today with chief complaint of sudden onset right-sided tingling from the right side of her face down to her right leg. Patient is diagnosed with pure sensory stroke versus prolonged TIA. MRI of brain with finding of small localized left thalamic infarct. Head and neck CTA with impression of no acute abnormality in the cervical/cranial region. PMHX: Hypertension High cholesterol Breast cancer Bladder cancer Social History/Home Situation: Lives with in a 2-floor house with 2 steps to enter. 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 Equipment Owned/DME: None Subjective: NT. See most recent NETWORK APPLICATIONS SPECIALIST notes. Objective: General Observation: NT. See most recent NETWORK APPLICATIONS SPECIALIST notes. Mental Status: NT. See most recent NETWORK APPLICATIONS SPECIALIST notes. Pain: NT. See most recent NETWORK APPLICATIONS SPECIALIST notes. ROM: Right Upper Extremity: Shoulder Flexion WFL. Shoulder abduction WFL. Elbow flexion WFL. Wrist flexion WFL. Opening and closing of hand WFL. Left Upper Extremity: Shoulder Flexion WFL. Shoulder abduction WFL. Elbow flexion WFL. Wrist flexion WFL. Opening and closing of hand WFL. Right Lower Extremity: Hip flexion WFL. Hip abduction WFL. Knee flexion WFL. Ankle dorsiflexion WFL. Ankle plantarflexion WFL. Left Lower Extremity: Hip flexion WFL. Hip abduction WFL. Knee flexion WFL. Ankle dorsiflexion WFL. Ankle plantarflexion WFL. Strength: Right Upper Extremity: Shoulder flexors 4/5. Shoulder abductors 4/5. Elbow flexors 4/5. Elbow extensors 4/5. Continuous Still Operator strong. Left Upper Extremity: Extremity: Shoulder flexors 4/5. Shoulder abductors 4/5. Elbow flexors 4/5. Elbow extensors 4/5. Continuous Still Operator strong. Right Lower Extremity: Hip flexors 4-/5. Hip abductors 4-/5. Knee flexors 4-/5. Knee extensors 4-/5. Ankle dorsiflexors 4-/5. Ankle plantarflexors 4-/5. Left Lower Extremity: Hip flexors 4-/5. Hip abductors 4-/5. Knee flexors 4-/5. Knee extensors 4-/5. Ankle dorsiflexors 4-/5. Ankle plantarflexors 4-/5. Sensation: Reported that sensation to B soles are almost back to how it was but still minimially diminished Bed Mobility/Transfers: Sit to stand SBA Stand to sit SBA Bed to chair SBA Chair to bed SBA Gait: 300 feet with front-wheeled walker with contact-guard assist with full weight bearing. Up and down three 4-inch steps and two 6-inch steps while holding onto 1 railing with CGA with step-to pattern. Balance: Static Sitting: Normal Dynamic Sitting: Normal Static Standing: Fair Dynamic Standing: Fair Assessment: Keiko continues to demonstrates functional mobility decline requiring the use of a front wheeled walker for all mobility ADL performance, decreased activity tolerance, unsteadiness gait, generalized weakness, and increased risk for falls due to admitting diagnoses. Patient continues to present with clinical signs and symptoms consistent with current/admitting diagnoses that have resulted to mobility limitations, gait instability, generalized weakness, and impairment of motor control as demonstr ated by the following impairment level findings: 1. Decreased strength to B UE/LE major muscle groups 2. Impaired standing balance 3. Impaired activity tolerance Impairments are continuing to contribute to the following functional limitations: 1. Dependent bed mobility skills 2. Increased dependence with transfers 3. Inability to safely ambulate without assistive device and physical assista nce 4. Increase completion time for mobility ADL performance 5. Increased fall risk 6. Inability to negotiate steps alone safely Goals: Goals X1 week 1. Supine-Sit independent MET 2. Sit-Supine independent MET 3. Sit-Stand independent NOT MET 4. Stand-Sit independent NOT MET 5. Bed-Chair independent NOT MET 6. Chair-Bed independent NOT MET 7. Independent gait on level surface with use of least restrictive device for at least 300 feet without report of pain nor dyspnea NOT MET 8. Independent stair negotiation while holding onto bilateral rails for at least 10 steps without report of pain nor dyspnea NOT MET 9. Good static and dynamic standing balance/tolerance NOT MET DISCHARGE RECOMMENDATIONS: Patient will benefit from home health PT services in order to progress mobility level using least restrictive assistive ambulatory device, assess home safety, identify additional equipment needs, and establish a functional maintenance program that will increase ability of patient to remain a t home. TREATMENT CODE/TIME: ME Thank you for the opportunity to participate in the care of this patient. Brittny Liu PT, DPT, CLT [facility] [place], [place]
--- NOTE | 2019-12-26 07:06 | OT.INDS ---
Date of service: 12/26/19 Time of Service: 07:06 Occupational Therapy Notes Occupational Therapy Inpatient Discharge Summary Date: 12/26/19 Dates of Service: 12/21/19 for [facility]ane Referring Doctor: Salvador Olivarez MD OT Orders: Urgent, Fall Safety Assessment Precautions: Fall, Standard, Full *This document serves as a summary of care, no skilled OT services provided for this documentation* PATIENT PROFILE/ADMITTING DIAGNOSIS: Pt is an 84 year old female who presented to the ER on 12/19 with c/o tingling. She had a neuro consultation by Dr. Jerome who states that pt had a (L) thalmic ischemic stroke. She was admitted to Med Surg for a dx of Pre Diabetes, thrombotic stroke involving middle cerebral artery, Stroke, hypertensive emergency, numbness (R) side both UE/LE. Past Medical History- Medical History Bladder cancer Breast cancer Hyperlipidemia Hypertension Polio spinobulbar with dysphagia, L arm/R leg weakness; at age 18 TIA (transient ischemic attack) Surgical History S/P left mastectomy Social History/Home Situation: Pt lives in a private home with her , she has 3 sons, and grandchildren. She reports that she is (I) at her baseline level of function and has a tub shower. She states that she has stairs into her home to the second floor to her bathroom and closet. She states that she is (I) with driving and notes that she enjoys spending her time being outdoors and spending time with her . Equipment owned/DME: [employer] SUBJECTIVE: NT OBJECTIVE: ROM: RUE AROM WFL L UE AROM WFL STRENGTH: RUE Shoulder flexion 3+/5, bicep 4/5, tricep 4-/5, system safety engineer is symmetrical LUE Shoulder flexion 4/5, bicep 4/5, tricep 4-/5, system safety engineer is symmetrical SENSATION: Decreased sensation in (R) UE/LE FUNCTIONAL MOBILITY/ADLS: Transfers with FWW Supine-sit (I) Sit-Stand CGA, FWW Stand-sit CGA, FWW Bed-Sink CGA, FWW Sink-Chair CGA, FWW BATHING sitting on side of the bed with max (A) Set up/clean up Bathing UE (I) with UE with use of (R) UE including face, (B) UE and abdomen Bathing LE (I) (B) LE DRESSING sitting on side of the bed Dressing UE Min (A) don and doffing hospital gown due to telemetry Dressing LE (I) don and doffing (B) socks with min vc for hand support for balance. GROOMING Sitting on side of the bed (I) with brushing her hair, standing at sink with min vc for hand stabilization she was (I) with brushing her teeth. TOILETING On commode with min vc she was able to (I) perform toileting hygiene, (I) with pulling underwear with vc for hand stabilization. EATING NT BALANCE: Static sitting Normal Dynamic Sitting Good Static Standing Good Dynamic Standing Fair-Good ASSESSMENT: Patient is a 84-year-old female referred to occupational therapy services with diagnosis of Pre Diabetes, thrombotic stroke involving middle cerebral artery, Stroke, hypertensive emergency, numbness (R) side both UE/LE. Pt was seen for OT consult only, she was able to demonstrate good (I) at that time, she did need vc for her functional mobility. She was medically cleared per MD and discharged on 12/22/19. GOALS- unable to assess as pt was seen for OT consult only before being medically cleared. 1. Transfers (S) with FWW 2. Dressing sitting on side of the bed pt will be able to (I) don and doff her pants 3. Bathing- pt will be able to demonstrate (I) for UE/LE bathing routines 4. Toileting- on toilet (I) 5. Eating (I) 6. Pt will be able to perform her ADLs demonstrating ideal energy conservation techniques. PLAN OF CARE/TREATMENT PLAN: Pt was medically cleared per MD on 12/22/19, will formally discharge pt from skilled OT services at this time. DISCHARGE RECOMMENDATIONS OT recommends that when pt is medically cleared per MD that she return home with HHOT for assessment of her ADLs in her home setting, need for adaptive equipment and safety in performance of both her dressing and bathing routines within her home. OT also recommends based on her fair-good static standing positions and functional mobility that pt would benefit from a shower bench to increase her ability to perform her bathing routine in her tub shower with increased safety performance and decrease her fall risk. TREATMENT TIME/MINUTES/CODES N/A Jacqueline Tobias, OTR/L [facility]
--- NOTE | 2019-12-27 16:02 | DI.VRAD_ITS ---
PROCEDURE INFORMATION: Exam: CT Angiography Head Without And With Contrast Exam date and time: 12/20/2019 4:19 AM Age: 84 years old Clinical indication: Other: Right sided tingling; Additional info: Right sided whole body tingling, R/O stroke/aneurysm TECHNIQUE: Imaging protocol: Computed tomographic angiography of the head without and with intravenous contrast. 3D rendering (Not supervised by radiologist): MIP and/or 3D reconstructed images were created by the technologist. Radiation optimization: All CT scans at this facility use at least one of these dose optimization techniques: automated exposure control; mA and/or kV adjustment per patient size (includes targeted exams where dose is matched to clinical indication); or iterative reconstruction. Contrast material: [id number]; Contrast volume: 85 ml; Contrast route: INTRAVENOUS (IV); Other technique: STROKE PROTOCOL was implemented. COMPARISON: No relevant prior studies available. FINDINGS: ANTERIOR CIRCULATION: Right internal carotid artery: Intracranial segment is patent with no significant stenosis or occlusion. No aneurysm. Right middle cerebral artery: No occlusion or significant stenosis. No aneurysm. Right anterior cerebral artery: No occlusion or significant stenosis. No aneurysm. Left internal carotid artery: Intracranial segment is patent with no significant stenosis. No aneurysm. Left middle cerebral artery: No occlusion or significant stenosis. No aneurysm. Left anterior cerebral artery: No occlusion or significant stenosis. No aneurysm. POSTERIOR CIRCULATION: Right vertebral artery: No occlusion or significant stenosis. No aneurysm. Left vertebral artery: No occlusion or significant stenosis. No aneurysm. Basilar artery: No occlusion or significant stenosis. No aneurysm. Right posterior cerebral artery: No occlusion or significant stenosis. No aneurysm. Left posterior cerebral artery: No occlusion or significant stenosis. No aneurysm. HEAD: Brain:No acute intracranial hemorrhage. No significant white matter disease. No edema. Cerebral ventricles: Normal. No ventriculomegaly. Bones/joints: Unremarkable. No acute fracture. Paranasal sinuses: Visualized sinuses are normal. No fluid levels. Mastoid air cells: Visualized mastoids are normal. No mastoid effusion. Soft tissues: Unremarkable. IMPRESSION: No large vessel occlusion. Unremarkable CT head. ASSESSMENT: ASPECTS ([place] Stroke Program Early CT Score) is 10. PROCEDURE INFORMATION: Exam: CT Angiography Neck Without And With Contrast Exam date and time: 12/20/2019 4:19 AM Age: 84 years old Clinical indication: Other: Right sided tingling; Additional info: Right sided whole body tingling, R/O stroke/aneurysm TECHNIQUE: Imaging protocol: Computed tomographic angiography of the neck without and with intravenous contrast. 3D rendering (Not supervised by radiologist): MIP and/or 3D reconstructed images were created by the technologist. Radiation optimization: All CT scans at this facility use at least one of these dose optimization techniques: automated exposure control; mA and/or kV adjustment per patient size (includes targeted exams where dose is matched to clinical indication); or iterative reconstruction. Contrast material: [id number]; Contrast volume: 85 ml; Contrast route: INTRAVENOUS (IV); COMPARISON: No relevant prior studies available. FINDINGS: Right common carotid artery: No stenosis. No dissection or occlusion. Right internal carotid artery: No stenosis of the extracranial segment. No dissection or occlusion. Right external carotid artery: No occlusion or stenosis of the origin. Right vertebral artery: No stenosis. No dissection or occlusion. Left common carotid artery: No stenosis. No dissection or occlusion. Left internal carotid artery: No stenosis of the extracranial segment. No dissection or occlusion. Left external carotid artery: No occlusion or stenosis of the origin. Left vertebral artery: No stenosis. No dissection or occlusion. Bones/joints: No acute fracture. Soft tissues: Right-sided thyroid nodule measuring 9 mm by no in the No significant soft tissue swelling. IMPRESSION: No stenosis or occlusion. REFERENCES: NASCET CRITERIA. The degree of internal carotid artery stenosis is based on NASCET criteria. Normal is no stenosis. Mild is less than 50% stenosis. Moderate is 50-69% stenosis. Severe is 70% to 99% stenosis. Total occlusion is no detectable patent lumen. Dictated and Authenticated by: Brodie Mccrary MD. Ordering:NAS Valdivia MD
--- NOTE | 2019-12-27 16:02 | DI.VRAD_ITS ---
PROCEDURE INFORMATION: Exam: XR Chest, 2 Views Exam date and time: 12/20/2019 5:09 AM Age: 84 years old Clinical indication: Other: Right sided tingling; Prior surgery; Surgery type: Left breast mastectomy 6+ years ago; Additional info: ? Mediastinal widening TECHNIQUE: Imaging protocol: XR of the chest Views: 2 views. COMPARISON: CR XR RIBS LT W PA LAT CHEST 01/02/2019 11:22 AM FINDINGS: Lungs: Mild chronic interstitial prominence No consolidation. Pleural space: No pleural effusion. No pneumothorax. Heart/Mediastinum: No mediastinal widening. No cardiomegaly. Bones/joints: Unremarkable. Prior left mastectomy by history IMPRESSION: No acute findings. No radiographic evidence for pneumonia No mediastinal widening Dictated and Authenticated by: Brodie Mccrary MD. Ordering:NAS Valdivia MD
--- NOTE | 2020-01-28 10:53 | W.CARDEVENT ---
Date of service: 01/28/20 Time of Service: 10:54 Cardiac Event Recorder Referring Provider:: Jarret Walters Indications:: Stroke Cardiac Event Note: This was a 30-day event monitor. Rhythm throughout was sinus. Average heart rate was 63 There was no atrial fibrillation There were no significant atrial or ventricular dysrhythmias There were no pauses greater than 3 seconds. There was no high-grade AV block
== END 2019-12-22 13:00 | disposition home health service (06) ==
LOC: ER 06:01 → ICU 12:18 → MS 12-22 10:21 → ICU 01-03 14:36 → MS 01-03 14:37
PROVIDERS: Internal Medicine; Admitting Provider General Practice; Emergency Provider Student in an Organized Health Care Education/Training Program; PCP Nurse Practitioner; Visit Provider General Practice
DX: I63.312 Cerebral infarction due to thrombosis of left middle cerebral artery (principal); I16.1 Hypertensive emergency; R73.03 Prediabetes; E78.5 Hyperlipidemia, unspecified; Z86.73 Personal history of transient ischemic attack (TIA), and cerebral infarction without residual deficits; Z85.3 Personal history of malignant neoplasm of breast; R13.10 Dysphagia, unspecified; B91 Sequelae of poliomyelitis; G83.11 Monoplegia of lower limb affecting right dominant side; G83.24 Monoplegia of upper limb affecting left nondominant side; Z87.891 Personal history of nicotine dependence
CPT/HCPCS: 36415; 36416; 70496; 70498; 80053; 80061; 82962; 93005; 93270; 93306; 96361; 96365; 96375; 97110; 97162; 97167; 97530; 97535; 99222; 99223; 99226; 99239; 99291; 99356; 99358; U0003; 70551; 71046; 81003; 81015; 83036; 84439; 84443; 84484; 85025; 85610; 85730; 87086; 93010; 99219; G0378; J3490

== ENCOUNTER 2019-12-26 15:16 | Outpatient (REF) | payer MEDICARE, OTHER, SELFPAY ==
[2019-12-26 21:25] LABS: TSH (W/Ref FT4) 2.57 uIU/mL (0.36-3.74)
== END 2019-12-26 15:36 ==
LOC: NCHCN 15:16
PROVIDERS: PCP Nurse Practitioner; Visit Provider Nurse Practitioner
DX: R94.6 Abnormal results of thyroid function studies (principal); I63.89 Other cerebral infarction
CPT/HCPCS: 84443

== ENCOUNTER 2020-01-28 10:53 | Outpatient (CLI) | payer MEDICARE, OTHER, SELFPAY | END 2020-01-28 11:13 | PROVIDERS: PCP Nurse Practitioner; Referring Provider General Practice; Visit Provider Internal Medicine Cardiovascular Disease | DX: I63.9 Cerebral infarction, unspecified (principal) | CPT/HCPCS: 93272 ==

== ENCOUNTER → 2020-02-04 09:39 | Outpatient (BNVA) | payer MEDICARE, OTHER, SELFPAY | PROVIDERS: PCP Nurse Practitioner; Referring Provider Nurse Practitioner; Visit Provider Psychiatry & Neurology Neurology | DX: I63.312 Cerebral infarction due to thrombosis of left middle cerebral artery (principal); R20.0 Anesthesia of skin; G89.0 Central pain syndrome; I10 Essential (primary) hypertension | CPT/HCPCS: 99213; 99442 ==

== ENCOUNTER 2020-02-13 11:47 | Emergency (ER) | payer MEDICARE, OTHER, SELFPAY ==
[2020-02-13] VITALS (26 sets, daily range): BP systolic 148–187; BP diastolic 49–61; PULSE 47–65; RESP 14–24; TEMP 36.5; O2SAT 97–100
--- NOTE | 2020-02-13 11:45 | RT.EKG_ITS ---
APPROVED REPORT Exam: Resting ECG Patient Location: E HR:54 bpm ECG Measurements Heart Rate 54 AXIS VA 209 P -21 QRSd 86 QRS 17 QT 415 T 54 QTc 393 Conclusion Slow sinus arrhythmia...V-rate 45- 64, mean< 60 Consider left ventricular hypertrophy...(S V1+R V5/V6) >3.25mV I have reviewed and interpreted ECG and agree with software generated interpretation.
--- NOTE | 2020-02-13 12:04 | ED.GENADUL_ITS ---
Discharge Plan Disposition Patient Disposition: HOME Condition: Improving Discharge Details Clinical Impression: Dizziness, Hypertension Primary Care Provider: Jeane Ruiz ED Provider: Chandrika Johnston Home Meds and New Rx's Prescriptions: Continued Children Multivitamin Tablet,Chewable PO BID RF: 0 clopidogrel [Plavix] 75 mg tablet 75 mg PO DAILY Qty: 90 RF: 3 rabeprazole [AcipHex] 20 MG tablet,delayed release (DR/EC) 20 mg PO BID RF: 0 metoprolol succinate 50 MG tablet extended release 24 hr 50 mg PO DAILY RF: 0 cholecalciferol (vitamin D3) [Vitamin D3] 1,000 UNIT capsule 1,000 unit PO DAILY RF: 0 escitalopram oxalate [Lexapro] 5 MG/5 ML solution 10 mg PO DAILY RF: 0 atorvastatin 20 mg tablet 20 mg PO QHS Qty: 30 RF: 0 No Action gabapentin 100 mg capsule See Rx Instructions PO QHS Qty: 21 RF: 0 amlodipine 2.5 mg tablet 2.5 mg PO BID Qty: 180 RF: 3 gabapentin 300 mg capsule 300 mg PO QHS Qty: 90 RF: 3 Discharge Instructions Instructions: Hypertension (ED), Dizziness (ED) Additional Instructions: Take your regular medications as directed. Drink plenty of fluids and get plenty of rest. An appointment has been made for you with Dr. Jerome for February 13 at 1:45 PM in the office. If you would prefer to do the follow-up by phone, call the office at [phone] as soon as possible. Return immediately to the emergency department if you develop any worsening or new concerning symptoms. 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 EKG notes a rate of 54, sinus with no acute ST-T wave ischemic changes. Patient has no acute complaints. Blood pressure 187/54. Remainder vitals with in normal limits. She took her amlodipine and metoprolol this morning. Concern for CVA. Will obtain a CT head and chest x-ray and send for MRI/MRA brain. Will check screening labs and continue to monitor BP. 1510 -- Labs and imaging reviewed. Labs unremarkable. Troponin negative. CT head negative. Chest x-ray negative. MRI/MRA brain and neck negative for acute findings. Case discussed with Dr. Jerome who does not recommend any medication changes or restarting aspirin. Patient remains asymptomatic at this time. Her blood pressure is much improved at 149/52. She feels good to go home. An appointment was made with her for Dr. Jerome for follow-up this week. Usual and customary return precautions given prior to discharge. Medical Records Medical records reviewed: Yes I reviewed the patient's medical records. Imaging Data Radiologic Study: Radiologist's impression: CT HEAD WO CLINICAL HISTORY: dizziness, r/o acute cva. TECHNIQUE: Imaging Protocol: Axial computed tomography images with coronal and sagittal reformatted images were created and reviewed COMPARISON: MR MR BRAIN WO from 12/20/[address] scan and CT 12/20/19 FINDINGS: There are no skull fractures nor fluid the visualized paranasal sinuses. There is no evidence of intracranial hemorrhage, mass effect, or shift of midline structures. There are no extra-axial fluid collections. Ventricles are not enlarged or shifted and there is no blood within the ventricular system nor within the basal cisterns. Calcifications noted in both vertebral arteries the skull base as well as within the internal carotid arteries. There is no evidence of obvious territorial infarction. IMPRESSION: No acute intracranial findings. XR CHEST 2V PA LATERAL CLINICAL HISTORY: dizziness, h/o cva, r/o acute disease. TECHNIQUE: 2D digital imaging was performed. COMPARISON: CR,XR XR CHEST 2V PA LATERAL from 12/20/2019 FINDINGS: Heart size upper normal. The mediastinum is not widened. No infiltrates nor pleural effusions. No pulmonary edema. No pneumothorax. IMPRESSION: No acute pulmonary findings and no significant change compared to prior study listed above. MR BRAIN WO CLINICAL HISTORY: dizziness, gait instablity, h/o cva. TECHNIQUE: Multiplanar multisequence MRI of the brain was performed. CONTRAST MATERIAL: IV Contrast: None COMPARISON: MR MR BRAIN WO from 12/20/2019 MR MR BRAIN WO from 12/20/2019 FINDINGS: There is no evidence of intracranial hemorrhage, mass effect, or shift of midline structures. There are no extra-axial fluid collections. Ventricles are not enlarged or shifted. There is no significant signal abnormality in the cerebellar hemispheres nor within the yary, midbrain, and thalami. There are small multifocal signal abnormalities in the periventricular white matter on the FLAIR images again evident but no new evidence of territorial nor lacunar infarct.. No new abnormal signal on diffusion imaging. Expected flow voids are noted. No evidence of vascular malformation or obvious aneurysm. Small retention cyst is noted in the floor the right maxillary sinus. Remainder of the paranasal sinuses are clear. Visualized orbits unremarkable. IMPRESSION: Findings as above but no evidence of a new acute areas of ischemia. No evidence of intracranial hemorrhage. MR ANGIO BRAIN WO CLINICAL HISTORY: dizziness, gait instabiliy, h/o cva TECHNIQUE: Performed with [id number] sequence COMPARISON: Prior relevant brain imaging studies reviewed. FINDINGS: Both internal carotid arteries are demonstrated to be patent in the skull base- carotid canals.. Intracavernous internal carotid arteries are patent. Ophthalmic arteries patent and originate in conventional fashion off of the intracavernous internal carotid arteries. Supraclinoid aspect of both internal carotid arteries are patent and nonaneurysmal. An both middle cerebral arteries are patent out to the sylvian fissure branches.. Right A1 segment is patent. Left A1 segment is twig like but this is unchanged from MRI study of 12/20/19. Both anterior cerebral arteries are patent and there is no evidence of aneurysm at the level of the anterior communicating artery nor elsewhere in the sofrop-[id number]. Posterior circulation: Both vertebral arteries are patent at the skull base and both contribute to the formation of the basilar artery. Distally this vessel gives off superior cerebellar arteries and above this level terminates as patent bilateral posterior cerebral arteries. There is no evidence of aneurysm at the tip of the basilar artery. IMPRESSION: 1. The left A1 segment is tweak like but this is not a new finding. This was also evident as thin flow-void on MRI scan of December 20 2019. There is no evidence of intraluminal filling defect within the visualized intracranial vessels. 2. No evidence of aneurysm. Lab Data Lab results reviewed: Yes I reviewed the patient's lab results. Labs: Laboratory Tests Range/Units 02/13/20 02/13/20 02/13/20 12:08 12:08 12:08 WBC (4.4-10.8) 10^3/uL 10.26 RBC (3.93-5.22) 10^6/uL 4.86 Hgb (11.2-15.7) g/dL 13.5 Hct (36.0-46.0) % 42.5 MCV (80-95) fL 87.4 MCH (27.0-33.0) pg 27.8 MCHC (32.0-36.0) % 31.8 L RDW (11.7-14.6) % 13.1 Plt Count (130-400) 10^3/uL 399 MPV (8.0-11.0) fL 10.2 Immature Gran % 0.3 Neutrophils % 63.3 Lymphocytes % 24.7 Monocytes % 10.1 Eosinophils % 0.7 Basophils % 0.9 Nucleated RBC % % 0 Absolute Neutrophils (1.2-6.7) 10^3/uL 6.50 Absolute Lymphocytes (1.2-3.4) 10^3/uL 2.53 Absolute Monocytes (0.1-0.8) 10^3/uL 1.04 H Absolute Eosinophils (0.0-0.7) 10^3/uL 0.07 Absolute Basophils (0.0-0.2) 10^3/uL 0.09 PT (9.3-11.0) sec 10.1 INR (0.9-1.1) 1.0 APTT (21.0-27.5) sec 22.1 Sodium (136-145) mmol/L 142 Potassium (3.5-5.1) mmol/L 4.2 Chloride (98-107) mmol/L 106 Carbon Dioxide (21.0-32.0) mmol/L 30.4 Anion Gap (3-11) mmol/L 5.6 BUN (7-18) mg/dL 14 Creatinine (0.55-1.02) mg/dL 1.10 H Estimated GFR/1.73 m2 (mL/min/1.73m2) 47.55 Glucose (74-106) mg/dL 93 Calcium (8.5-10.1) mg/dL 9.4 Magnesium (1.8-2.4) mg/dL 1.9 Total Bilirubin (0.2-1.0) mg/dL 0.5 AST (15-37) U/L 23 ALT (14-59) U/L 27 Alkaline Phosphatase (46-116) U/L 111 Troponin I (<0.06) ng/mL < 0.05 Total Protein (6.4-8.2) g/dL 7.3 Albumin (3.4-5.0) g/dL 3.4 ECG Data Attestation: I personally reviewed and interpreted this ECG (s) as follows: Interpretation: Rate of 54, sinus, no acute ST elevation or depression. VT 209. QRS 86. QTc 393. HPI General Mode of arrival: wheelchair . Date/Time Provider Initiated Documentation: 02/13/20 11:59 . Limitations to Documentation: no limitations . Information obtained by: patient . HPI Narrative: Patient is an 84-year-old female with a history of recent L thalamic ischemic stroke on 12/20/19 in the settng of profound hypertension due to small vessel disease, hyperlipidemia, remote TIA (in her 40s with left hemisensory loss lasting <24 hours), a history of polio at age 18 (with chronic dysphagia, left arm/right leg weakness) and breast cancer who presents to the ED with an episode of dizziness and gait instability this morning. Patient states she awoke and was getting out of bed and felt lightheadedness and when she was attempting to walk she was veering to the right and she could not straighten up or walk. She states this last approximately 10 minutes and then resolved. She currently denies any symptoms. Patient was seen here in December for right arm and leg tingling and weakness and was found to have a left thalamic ischemic stroke. She states her weakness on her right side has resolved but she still has residual pinpricks in her right arm and right leg. Patient followed up with Dr. Jerome recently last month and she states her aspirin was stopped. She states she is still taking her Plavix. She denies any fever, recent travel, recent surgeries, recent known exposure to coronavirus, headache, blurry vision, slurred speech, chest pain, shortness of breath, nausea, vomiting, abdominal pain, diarrhea or urinary symptoms. Related Data Home Medications Medication Instructions Recorded Confirmed cholecalciferol (vitamin D3) 1,000 unit PO DAILY 04/01/14 02/14/20 [Vitamin D3] escitalopram oxalate [Lexapro] 10 mg PO DAILY ml 04/01/14 02/14/20 metoprolol succinate 50 mg PO DAILY tab-cap 04/01/14 02/14/20 rabeprazole [AcipHex] 20 mg PO BID 04/01/14 02/14/20 atorvastatin 20 mg PO QHS #30 tab 12/22/19 02/14/20 clopidogrel 75 mg tablet 75 mg PO DAILY #90 tab 02/04/20 02/14/20 pediatric multivitamin no.136 tab PO BID tab 02/04/20 02/14/20 amlodipine 2.5 mg tablet 2.5 mg PO BID #180 tab 02/14/20 02/14/20 gabapentin 100 mg capsule See Rx Instructions PO QHS #21 cap 02/14/20 02/14/20 gabapentin 300 mg capsule 300 mg PO QHS #90 cap 02/14/20 02/14/20 Previous Rx's Medication Instructions Recorded atorvastatin 20 mg PO QHS #30 tab 12/22/19 clopidogrel 75 mg tablet 75 mg PO DAILY #90 tab 02/04/20 amlodipine 2.5 mg tablet 2.5 mg PO BID #180 tab 02/14/20 gabapentin 100 mg capsule See Rx Instructions PO QHS #21 cap 02/14/20 gabapentin 300 mg capsule 300 mg PO QHS #90 cap 02/14/20 Allergies Allergy/AdvReac Type Severity Reaction Status Date / Time codeine AdvReac nausea Unverified 02/14/20 14:24 Sulfa (Sulfonamide AdvReac GI upset Unverified 02/14/20 14:24 Antibiotics) aspartane Allergy Severe migraine Uncoded 02/14/20 14:24 General Stated Complaint: Dizzy/Sync JULY: 3 Review of Systems All systems reviewed & are unremarkable except as noted in HPI and below Constitutional Constitutional: Reports as per HPI, Denies chills and Denies fever(s) Eyes Eyes: Denies blurry vision ENT Ears, Nose, Mouth, and Throat: Reports dizziness, Denies sore throat and Denies throat swelling Cardiovascular Cardiovascular: Denies chest pain and Denies dyspnea Respiratory Respiratory: Denies cough and Denies dyspnea Gastrointestinal Gastrointestinal: Denies abdominal pain, Denies diarrhea and Denies vomiting Genitourinary Genitourinary: Denies hematuria and Denies dysuria Musculoskeletal Musculoskeletal: Denies back pain and Denies numbness Integumentary/Breasts Skin/Breast: Denies lesions and Denies rash Neurologic Neurologic: Reports dizziness, Denies localized weakness and Denies numbness Allergic/Immunologic Allergic/Immunologic: Denies throat swelling [facility] Medical History Bladder cancer Breast cancer Hyperlipidemia Hypertension Polio spinobulbar with dysphagia, L arm/R leg weakness; at age 18 TIA (transient ischemic attack) Surgical History S/P left mastectomy Social History (Updated 02/14/20 @ 14:29 by Rosi Holland LPN) Smoking/Tobacco Use Status: Former Tobacco Use Smoking risk assessment performed?: Yes Alcohol Intake: never Drug use: Never Substance use type: does not use Household members: spouse Housing: house Number of Children: 3 number of grandchildren: 2 Pets and animals: Yes Pets and animals: cat(s) What is your relationship status?: Panel score (0-1 are the most socially isolated patients): 1 Seatbelt use: always Do you feel safe at home: Yes Do you feel safe in your relationship?: Yes Exam Const General: cooperative and no acute distress Orientation: alert, awake and oriented x3 HENMT Head: normal to inspection Ears: hearing grossly normal bilaterally, external ears normal and TM's normal bilaterally General nose exam: external nose normal Face and sinus: normal facial exam Mouth: oral mucosae normal Teeth and gingiva: dentition normal Throat: posterior oropharynx normal Eyes General: appearance normal, both eyes and all related structures Eyelids: eyelids normal Pupils: PERRL EOM: EOM intact bilaterally Neck Neck: normal visual inspection Lymphatic: no lymphadenopathy noted Chest Chest: normal inspection of the chest Resp Effort & Inspection: normal respiratory effort and able to speak in complete sentences Auscultation: clear to auscultation bilaterally Cardio Rate: regular rate Rhythm: regular rhythm GI Inspection: normal to inspection Palpation: soft, not firm, no guarding, no hepatosplenomegaly, no masses and nontender Auscultation: normal bowel sounds Back/Spine/Pelvis Back: no CVA tenderness Skin General skin exam: no rashes or lesions noted Neuro General: patient alert, patient awake and patient oriented x3 Cranial Nerves: CN's II-XI intact bilaterally Cognition: normal cognition Speech: speech normal Gait: gait assisted Method: walking stick Motor: muscle tone normal throughout, strength 5/5 throughout and no pronator drift Sensory Exam: no sensory deficits noted Extrem General: normal to inspection, full ROM and capillary refill normal Psych Appearance: grossly normal Mental Status: mental status grossly normal Speech and Movement: speech and movement normal Affect: normal affect Thought Process: normal Course Vital Signs Vital signs: Vital Signs Temperature 97.7 F 02/13/20 11:57 Pulse 65 02/13/20 11:57 Respiratory Rate 14 02/13/20 11:57 Blood Pressure 187/54 H 02/13/20 11:57 Pulse Oximetry 100 02/13/20 11:57 Temperature 97.7 F 02/13/20 11:57 Temperature Source Temporal Artery Scan 02/13/20 11:57 Pulse 65 02/13/20 11:57 Respiratory Rate 14 02/13/20 11:57 Blood Pressure 187/54 H 02/13/20 11:57 Blood Pressure Position Supine 02/13/20 11:57 Pulse Oximetry 100 02/13/20 11:57 Oxygen Delivery Method Room Air 02/13/20 11:57 Oxygen Flow Rate 0 02/13/20 11:57
--- NOTE | 2020-02-13 12:15 | DI.MRI_ITS ---
EXAM: MR ANGIO NECK WO CLINICAL HISTORY: dizziness, gait instability, h/o cva. TECHNIQUE: Multiplanar multisequence MRI was performed. COMPARISON: MR MRI - CERVICAL SPINE WO CONT from 09/26/2008 FINDINGS: MR angiography of the carotid circulation was performed according to the usual protocol utilizing 3D [id number]-gotgfk imaging and 2D soal-ua-fadxcm imaging. The distal portion of the common carotid arter y appears well maintained bilaterally. The visualized internal and external carotid arteries appear intact in with the ICA visualized bilaterally to the level of the skull base. Visualized vertebral a rteries appear grossly intact although artifact obscures the upper cervical portion of the vertebral arteries bilaterally. IMPRESSION: Technically limited examination, no evidence of ICA stenosis in the region surveyed, no definite vert ebral lesion but vertebral arteries are inadequately visualized to exclude lesion. Additional evaluation with CT angiography may be considered if clinically indicated. DATA REPOSITORY:
--- NOTE | 2020-02-13 12:15 | DI.MRI_ITS ---
EXAM: MR BRAIN WO CLINICAL HISTORY: dizziness, gait instablity, h/o cva. TECHNIQUE: Multiplanar multisequence MRI of the brain was performed. CONTRAST MATERIAL: IV Contrast: None COMPARISON: MR MR BRAIN WO from 12/20/2019 MR MR BRAIN WO from 12/20/2019 FINDINGS: There is no evidence of intracranial hemorrhage, mass effect, or shift of midline structures. There are no extra-axial fluid collections. Ventricles are not enlarged or shifted. There is no significant signal abnormality in the cerebellar hemispheres nor within the yary, midbrai n, and thalami. There are small multifocal signal abnormalities in the periventricular white matter on the FLAIR images again evident but no new evidence of territorial nor lacunar infarct.. No new ab normal signal on diffusion imaging. Expected flow voids are noted. No evidence of vascular malformation or obvious aneurysm. Small retention cyst is noted in the floor the right maxillary sinus. Remainder of the paranasal sin uses are clear. Visualized orbits unremarkable. , IMPRESSION: Findings as above but no evidence of a new acute areas of ischemia. No evidence of intracranial hemo rrhage. DATA REPOSITORY:
--- NOTE | 2020-02-13 12:15 | DI.MRI_ITS ---
EXAM: MR ANGIO BRAIN WO CLINICAL HISTORY: dizziness, gait instabiliy, h/o cva TECHNIQUE: Performed with [id number] sequence COMPARISON: Prior relevant brain imaging studies reviewed. FINDINGS: Both internal carotid arteries are demonstrated to be patent in the skull base-carotid canals.. Intr acavernous internal carotid arteries are patent. Ophthalmic arteries patent and originate in convent ional fashion off of the intracavernous internal carotid arteries. Supraclinoid aspect of both internal carotid arteries are patent and nonaneurysmal. An both middle c erebral arteries are patent out to the sylvian fissure branches.. Right A1 segment is patent. Left A1 segment is twig like but this is unchanged from MRI study of 12/20/19. Both anterior cerebral kayleigh zayra are patent and there is no evidence of aneurysm at the level of the anterior communicating arter y nor elsewhere in the [id number]. Posterior circulation: Both vertebral arteries are patent at the skull base and both contribute to the formation of the basi lar artery. Distally this vessel gives off superior cerebellar arteries and above this level termina lexis as patent bilateral posterior cerebral arteries. There is no evidence of aneurysm at the tip of the basilar artery. IMPRESSION: 1. The left A1 segment is tweak like but this is not a new finding. This was also evident as thin fl ow-void on MRI scan of December 20 2019. There is no evidence of intraluminal filling defect within the visualized intracranial vessels. 2. No evidence of aneurysm. 3. DATA REPOSITORY:
[2020-02-13 12:23] LABS: Abs Immature Grans 0.03 10^3/uL (0.0-0.06); Absolute Basophil Count 0.09 10^3/uL (0.0-0.2); Absolute Eosinophil Count 0.07 10^3/uL (0.0-0.7); Absolute Lymphocyte Count 2.53 10^3/uL (1.2-3.4); Absolute Monocyte Count 1.04 10^3/uL (0.1-0.8); Basophils % 0.9; Eosinophils % 0.7; HCT 42.5 % (36.0-46.0); HGB 13.5 g/dL (11.2-15.7); Immature Grans % 0.3; Lymphocytes % 24.7; MCH 27.8 pg (27.0-33.0); MCHC 31.8 % (32.0-36.0); MCV 87.4 fL (80-95); MPV 10.2 fL (8.0-11.0); Monocytes % 10.1; Neutrophils % 63.3; Nucleated RBC 0 %; Platelet Count 399 10^3/uL (130-400); RBC 4.86 10^6/uL (3.93-5.22); RDW 13.1 % (11.7-14.6); RDW-SD 41.8 fL; WBC 10.26 10^3/uL (4.4-10.8)
--- NOTE | 2020-02-13 12:30 | DI.RAD_ITS ---
EXAM: XR CHEST 2V PA LATERAL CLINICAL HISTORY: dizziness, h/o cva, r/o acute disease. TECHNIQUE: 2D digital imaging was performed. COMPARISON: CR,XR XR CHEST 2V PA LATERAL from 12/20/2019 FINDINGS: Heart size upper normal. The mediastinum is not widened. No infiltrates nor pleural effusions. No pulmonary edema. No pneumothorax. IMPRESSION: No acute pulmonary findings and no significant change compared to prior study listed above. DATA REPOSITORY: RADIATION DOSE DELIVERED:
[2020-02-13 12:39] LABS: PTT Activated 22.1 sec (21.0-27.5); Prothrombin Time 10.1 sec (9.3-11.0)
[2020-02-13 12:41] LABS: ALT 27 U/L (14-59); AST 23 U/L (15-37); Albumin 3.4 g/dL (3.4-5.0); Alkaline Phosphatase 111 U/L (46-116); Anion Gap 5.6 mmol/L (3-11); BUN 14 mg/dL (7-18); Bilirubin, Total 0.5 mg/dL (0.2-1.0); CO2 30.4 mmol/L (21.0-32.0); Calcium 9.4 mg/dL (8.5-10.1); Chloride 106 mmol/L (98-107); Estimated GFR 47.55 (mL/min/1.73m2); Glucose 93 mg/dL (74-106); Magnesium 1.9 mg/dL (1.8-2.4); Potassium 4.2 mmol/L (3.5-5.1); Sodium 142 mmol/L (136-145); Total Protein 7.3 g/dL (6.4-8.2); Troponin I < 0.05 ng/mL (<0.06)
[2020-02-13] MEDS: LORazepam 2 MG/ML VIAL 1 MG IVP (12:45)
--- NOTE | 2020-02-13 12:58 | DI.CT_ITS ---
EXAM: CT HEAD WO CLINICAL HISTORY: dizziness, r/o acute cva. TECHNIQUE: Imaging Protocol: Axial computed tomography images with coronal and sagittal reformatted images were created and reviewed COMPARISON: MR MR BRAIN WO from 12/20/[address] scan and CT 12/20/19 FINDINGS: There are no skull fractures nor fluid the visualized paranasal sinuses. There is no evidence of intracranial hemorrhage, mass effect, or shift of midline structures. There are no extra-axial fluid collections. Ventricles are not enlarged or shifted and there is no blood w ithin the ventricular system nor within the basal cisterns. Calcifications noted in both vertebral a rteries the skull base as well as within the internal carotid arteries. There is no evidence of obvi ous territorial infarction. IMPRESSION: No acute intracranial findings. RADIATION DOSE DELIVERED: 712.96mGy.cm Total DLP DATA REPOSITORY: All CT scans at this facility are submitted to the National Radiology Data Registry (NRDR) Dose Index Registry (DIR) with the [employer] ([employer]). RADIATION OPTIMIZATION: All CT scans at this facility use at least one of these dose optimization te chniques: automated exposure control; mA and/or kV adjustment per patient size (includes targeted exa ms where dose is matched to clinical indication); or iterative reconstruction.
[2020-02-13] MEDS: Normal Saline 500 ML IV (14:18)
== END 2020-02-13 15:57 | disposition home or self-care (01) ==
PROVIDERS: Emergency Provider Physician Assistant; PCP Nurse Practitioner
DX: R42 Dizziness and giddiness (principal); I10 Essential (primary) hypertension; R26.89 Other abnormalities of gait and mobility
CPT/HCPCS: 36415; 70544; 70547; 80053; 93005; 96361; 96374; 99285; 70450; 70551; 71046; 83735; 84484; 85025; 85610; 85730; 93010; J2060

== ENCOUNTER → 2020-02-14 13:45 | Outpatient (BNVA) | payer MEDICARE, OTHER, SELFPAY | PROVIDERS: PCP Nurse Practitioner; Referring Provider Nurse Practitioner; Visit Provider Psychiatry & Neurology Neurology | DX: I63.312 Cerebral infarction due to thrombosis of left middle cerebral artery (principal); R20.0 Anesthesia of skin; G89.0 Central pain syndrome; R42 Dizziness and giddiness | CPT/HCPCS: 99214 ==

== ENCOUNTER → 2020-03-25 07:57 | Outpatient (BNVA) | payer MEDICARE, OTHER, SELFPAY | PROVIDERS: PCP Nurse Practitioner; Referring Provider Nurse Practitioner; Visit Provider Psychiatry & Neurology Neurology | DX: I63.312 Cerebral infarction due to thrombosis of left middle cerebral artery (principal); G89.0 Central pain syndrome; R20.0 Anesthesia of skin; I10 Essential (primary) hypertension; Z79.01 Long term (current) use of anticoagulants | CPT/HCPCS: 99442 ==

== ENCOUNTER 2020-04-04 02:41 | Outpatient (CLI) | payer MEDICARE, OTHER, SELFPAY ==
[2020-04-04 13:18] LABS: Ferritin 36 ng/mL (8-252); TSH (W/Ref FT4) 2.81 uIU/mL (0.36-3.74); Vitamin B12 623 pg/mL (193-986)
[2020-04-07 06:33] LABS: Vitamin D 25 Total 54.8 ng/ml (30-100)
== END 2020-04-04 03:01 ==
PROVIDERS: PCP Nurse Practitioner; Visit Provider Internal Medicine Sleep Medicine
DX: R53.83 Other fatigue (principal); E55.9 Vitamin D deficiency, unspecified; M25.551 Pain in right hip
CPT/HCPCS: 36415; 82306; 82607; 82728; 84443

== ENCOUNTER → 2020-05-01 07:49 | Outpatient (BNVA) | payer MEDICARE, OTHER, SELFPAY | PROVIDERS: PCP Nurse Practitioner; Referring Provider Nurse Practitioner; Visit Provider Psychiatry & Neurology Neurology | DX: G89.0 Central pain syndrome (principal); R13.10 Dysphagia, unspecified; I63.312 Cerebral infarction due to thrombosis of left middle cerebral artery; R20.0 Anesthesia of skin | CPT/HCPCS: 99442 ==

== ENCOUNTER 2020-06-05 17:18 | Outpatient (REF) | payer MEDICARE, OTHER, SELFPAY ==
[2020-06-05 18:38] LABS: Hemoglobin A1C 6.3 % (<5.7)
[2020-06-05 18:44] LABS: Calculated LDL 92 mg/dL (<100); Cholesterol 164 mg/dL (<200); HDL Cholesterol 51 mg/dL (40-60); Triglyceride 109 mg/dL (<150)
== END 2020-06-05 17:19 | disposition home or self-care (01) ==
LOC: NCHCN 17:18
PROVIDERS: PCP Nurse Practitioner; Visit Provider Nurse Practitioner
DX: E11.9 Type 2 diabetes mellitus without complications (principal); I10 Essential (primary) hypertension
CPT/HCPCS: 80061; 83036

== ENCOUNTER 2021-06-02 23:00 | Outpatient (REF) | payer MEDICARE, OTHER, SELFPAY ==
[2021-06-02 15:46] LABS: Anion Gap 9.9 mmol/L (3-11); BUN 17 mg/dL (7-18); CO2 26.1 mmol/L (21.0-32.0); CREATININE 1.1 mg/dL (0.55-1.02); Calcium 9.1 mg/dL (8.5-10.1); Chloride 104 mmol/L (98-107); Estimated GFR 47.32 (mL/min/1.73m2); Glucose 80 mg/dL (74-106); Potassium 4.5 mmol/L (3.5-5.1); Sodium 140 mmol/L (136-145)
== END 2021-06-02 23:01 | disposition home or self-care (01) ==
LOC: NCHCN 23:00
PROVIDERS: PCP Nurse Practitioner; Visit Provider Nurse Practitioner Family
DX: I10 Essential (primary) hypertension (principal)
CPT/HCPCS: 80048

== ENCOUNTER 2021-10-08 09:57 | Emergency (ER) | payer MEDICARE, OTHER, SELFPAY ==
[2021-10-08] VITALS (27 sets, daily range): BP systolic 130–172; BP diastolic 7–70; PULSE 49–64; RESP 13–21; TEMP 36.1–37.2; O2SAT 95–97
--- NOTE | 2021-10-08 10:00 | RT.EKG_ITS ---
APPROVED REPORT Exam: Resting ECG Reason for Exam: WEAKNESS Patient Location: E HR:58 bpm ECG Measurements Heart Rate 58 AXIS FL 202 P 7 QRSd 86 QRS -11 QT 425 T 32 QTc 418 Conclusion Sinus bradycardia...rate< 60
--- NOTE | 2021-10-08 10:12 | DI.MRI_ITS ---
Exam(s) MR BRAIN WO EXAM: MR BRAIN WO CLINICAL HISTORY: listing to right, gait ataxia, prior MCA cvano TECHNIQUE: Multiplanar multisequence MRI of the brain was performed. COMPARISON: MR MR BRAIN WO from 02/13/2020 MR MR ANGIO BRAIN WO from 02/13/2020 FINDINGS: VENTRICLES AND EXTRA AXIAL SPACES: Normal in size and morphology for the patient's age. MIDLINE SHIFT: None. CEREBRAL PARENCHYMA: No focus of restricted diffusion to suggest acute infarct. No space-occupying le tomás identified. There are areas of hyperintense signal on the T2 weighted images in the white matter consistent with small vessel ischemic disease. HEMORRHAGE: None. BRAINSTEM/CEREBELLUM: Normal. CALVARIUM: Normal. VISUALIZED PARANASAL SINUSES/MASTOIDS:Clear. [place]: Normal flow void. PITUITARY GLAND: Unremarkable. OTHER FINDINGS: None. IMPRESSION: 1. No evidence of an acute infarct. 2. Results of this exam have been verbally communicated with provider. DATA REPOSITORY:
[2021-10-08 10:31] LABS: Abs Immature Grans 0.03 10^3/uL (0.0-0.06); Absolute Basophil Count 0.09 10^3/uL (0.0-0.2); Absolute Eosinophil Count 0.09 10^3/uL (0.0-0.7); Absolute Lymphocyte Count 1.88 10^3/uL (1.2-3.4); Absolute Monocyte Count 0.82 10^3/uL (0.1-0.8); Absolute Neutrophil Count 6.54 10^3/uL (1.2-6.7); HCT 42.5 % (36.0-46.0); HGB 13.7 g/dL (11.2-15.7); Immature Grans % 0.3; Lymphocytes % 19.9; MCH 27.7 pg (27.0-33.0); MCHC 32.2 % (32.0-36.0); MCV 86 fL (80-95); MPV 10.2 fL (8.0-11.0); Monocytes % 8.7; Neutrophils % 69.1; Platelet Count 390 10^3/uL (130-400); RBC 4.95 10^6/uL (3.93-5.22); RDW 13.2 % (11.7-14.6); WBC 9.45 10^3/uL (4.4-10.8)
--- NOTE | 2021-10-08 11:23 | DI.RAD_ITS ---
Exam(s) XR CHEST 1V IN DI DEPT EXAM: XR CHEST 1V IN DI DEPT CLINICAL HISTORY: dizziness TECHNIQUE: 2D digital imaging was performed of the chest. One image was obtained. An AP view was ob tained. COMPARISON: CR XR CHEST 2V PA LATERAL from 02/13/2020 FINDINGS: MEDIASTINUM: Normal. HEART: Normal. PULMONARY VASCULATURE: Normal. LUNGS: Clear. PLEURAL SPACE: No pleural effusion or pneumothorax. BONE:Within normal limits for the patient's age. OTHER FINDINGS:Normal. IMPRESSION: No acute pulmonary findings. DATA REPOSITORY: RADIATION DOSE DELIVERED:
--- NOTE | 2021-10-08 11:43 | ED.GENADUL_ITS ---
Discharge Plan Disposition Patient Disposition: HOME Condition: Stable Discharge Details Clinical Impression: Weakness Primary Care Provider: Jeane Ruiz ED Provider: Yancy Coats Home Meds and New Rx's Prescriptions: Continued Children Multivitamin Tablet,Chewable 0 tab PO BID clopidogrel [Plavix] 75 mg tablet 75 mg PO DAILY Qty: 90 3RF amlodipine 2.5 mg tablet 2.5 mg PO BID Qty: 180 3RF rabeprazole [AcipHex] 20 MG tablet,delayed release (DR/EC) 20 mg PO BID metoprolol succinate 50 MG tablet extended release 24 hr 50 mg PO DAILY cholecalciferol (vitamin D3) [Vitamin D3] 1,000 UNIT capsule 1,000 unit PO DAILY atorvastatin 20 mg tablet 20 mg PO QHS Qty: 30 0RF escitalopram oxalate 10 mg tablet 1 tab PO DAILY Discharge Instructions Instructions: Weakness (ED) Additional Instructions: Please caution when getting out of bed in the morning, but only as you are been for a minute to 2 minutes and then walk slowly to the bathroom Have your potassium rechecked by your doctor in the next week or 2 Please return earlier should you have any worsening complaints Referrals: Jeane Ruiz [Primary Care Provider] - 1 day Discharge Data Discharge Date/Time-TO BE ENTERED AT DEPARTURE: 10/08/21 13:23 Medical Decision Making Patient appears symptomatically improved, she has not orthostatic She is ambulatory with steady gait Her MRI does not show evidence of acute infarct or abnormality Her diagnostic labs are reassuring And low suspicion for TIA Patient is having some lightheadedness in the morning and she is encouraged to sit on the edge of her bed for several minutes before getting up to go to the bathroom She also had mildly elevated potassium, I suspect this is hemolyzed Patient will need this rechecked in the next couple weeks, this was discussed with patient She is discharged home ambulatory with steady gait feeling symptomatically improved on appropriate medical management if she has had TIA for close outpatient reassessment by her primary care physician Medical Records Medical records reviewed: Yes I reviewed the patient's medical records. Lab Data Lab results reviewed: Yes I reviewed the patient's lab results. HPI General Date/Time Provider Initiated Documentation: 10/08/21 10:00 . HPI Narrative: This zara 86-year-old female presents with report of feeling weak and listing to the right this morning. Patient had couple of episodes in the past week but has not been assessed. She states she felt fine at night when she went to bed. She states they have only happened in the morning. She denies any vision, speech, or sensation change. She has a history of MCA stroke and does take Plavix and cholesterol medication. She denies any chest pain or shortness of breath. She denies any persistent symptoms. She denies any changes in bowel or bladder. She denies any fever or chills. She is overall feeling symptomatically improved. She denies any new medications. Related Data Home Medications Medication Instructions Recorded Confirmed cholecalciferol (vitamin D3) 25 1,000 unit PO DAILY 04/01/14 10/08/21 mcg (1,000 unit) capsule (Vitamin D3) metoprolol succinate 50 mg 50 mg PO DAILY 04/01/14 10/08/21 tablet,extended release 24 hr rabeprazole 20 mg tablet,delayed 20 mg PO BID 04/01/14 10/08/21 release (AcipHex) atorvastatin 20 mg tablet 20 mg PO QHS #30 tabs 12/22/19 10/08/21 clopidogrel 75 mg tablet (Plavix) 75 mg PO DAILY #90 tabs 02/04/20 10/08/21 pediatric multivitamin no.136 0 tab PO BID 02/04/20 10/08/21 (Children Multivitamin chewable tablet) amlodipine 2.5 mg tablet 2.5 mg PO BID #180 tabs 02/14/20 10/08/21 escitalopram oxalate 10 mg tablet 1 tab PO DAILY 10/08/21 10/08/21 Previous Rx's Medication Instructions Recorded atorvastatin 20 mg tablet 20 mg PO QHS #30 tabs 12/22/19 clopidogrel 75 mg tablet (Plavix) 75 mg PO DAILY #90 tabs 02/04/20 amlodipine 2.5 mg tablet 2.5 mg PO BID #180 tabs 02/14/20 Allergies Allergy/AdvReac Type Severity Reaction Status Date / Time codeine AdvReac nausea Unverified 10/08/21 10:07 Sulfa (Sulfonamide AdvReac GI upset Unverified 10/08/21 10:07 Antibiotics) aspartane Allergy Severe migraine Uncoded 10/08/21 10:07 General Stated Complaint: CVA/TIA JULY: 2 Review of Systems All systems reviewed & are unremarkable except as noted in HPI and below PFSH All Active Problems (Updated 10/08/21 @ 13:02 by VIOLA Rodriguez) Weakness (Acute) Dysphagia (Acute) Thalamic pain syndrome (Acute) Pre-diabetes (Acute) 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) Stroke (Chronic) Hypertensive emergency (Acute) Numbness on right side (Acute) Medical History Bladder cancer Breast cancer Hyperlipidemia Hypertension Polio spinobulbar with dysphagia, L arm/R leg weakness; 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18 TIA (transient ischemic attack) Surgical History S/P left mastectomy Social History Smoking/Tobacco Use Status: Former Tobacco Use Smoking risk assessment performed?: Yes Alcohol Intake: never Drug use: Never Substance use type: does not use Household members: spouse Housing: house Number of Children: 3 number of grandchildren: 2 Pets and animals: Yes Pets and animals: cat(s) What is your relationship status?: Panel score (0-1 are the most socially isolated patients): 1 Seatbelt use: always Do you feel safe at home: Yes Do you feel safe in your relationship?: Yes Exam Const General: cooperative, comfortable and no acute distress HENMT Head: normal to inspection Mouth: oral mucosae normal Eyes Pupils: PERRL EOM: EOM intact bilaterally Chest Chest: normal inspection of the chest Resp Effort & Inspection: normal respiratory effort Auscultation: clear to auscultation bilaterally Cardio Rate: regular rate Rhythm: regular rhythm GI Inspection: normal to inspection Skin General skin exam: no rashes or lesions noted Neuro General: patient alert and patient oriented x3 Cranial Nerves: CN's II-XI intact bilaterally and tongue midline Cognition: normal cognition Speech: speech normal Gait: normal gait Motor: muscle tone normal throughout and strength 5/5 throughout Sensory Exam: no sensory deficits noted Other: neg fnf, neg heel-mantilla, negative pronator drift Extrem General: normal to inspection Course Vital Signs Vital signs: Vital Signs Temperature 37.2 C 10/08/21 09:59 Pulse 60 10/08/21 09:59 Respiratory Rate 20 10/08/21 09:59 Blood Pressure 164/7 H 10/08/21 09:59 Pulse Oximetry 97 10/08/21 09:59 Temperature 36.1 C L 10/08/21 11:42 Temperature Source Skin 10/08/21 11:42 Pulse 59 L 10/08/21 11:42 Pulse 57 L 10/08/21 10:40 Respiratory Rate 18 10/08/21 11:42 Respiratory Effort Non-Labored 10/08/21 10:13 Respiratory Depth Normal 10/08/21 10:13 Respiratory Pattern Normal 10/08/21 10:13 Blood Pressure 147/64 H 10/08/21 11:42 Blood Pressure Mean 91 10/08/21 10:16 Blood Pressure Position Sitting 10/08/21 09:59 Pulse Oximetry 97 10/08/21 11:42 Oxygen Delivery Method Room Air 10/08/21 11:42 Oxygen Flow Rate 0 10/08/21 11:42 Pain Level 0 10/08/21 11:42 Lab/Test Results Lab/Test Results: Laboratory Tests Range/Units 10/08/21 10/08/21 10:22 10:22 WBC (4.4-10.8) 10^3/uL 9.45 RBC (3.93-5.22) 10^6/uL 4.95 Hgb (11.2-15.7) g/dL 13.7 Hct (36.0-46.0) % 42.5 MCV (80-95) fL 86 MCH (27.0-33.0) pg 27.7 MCHC (32.0-36.0) % 32.2 RDW (11.7-14.6) % 13.2 Plt Count (130-400) 10^3/uL 390 MPV (8.0-11.0) fL 10.2 Immature Gran % 0.3 Neutrophils % 69.1 Lymphocytes % 19.9 Monocytes % 8.7 Eosinophils % 1.0 Basophils % 1.0 Nucleated RBC % (0.0-0.3) % 0.0 Absolute Neutrophils (1.2-6.7) 10^3/uL 6.54 Absolute Lymphocytes (1.2-3.4) 10^3/uL 1.88 Absolute Monocytes (0.1-0.8) 10^3/uL 0.82 H Absolute Eosinophils (0.0-0.7) 10^3/uL 0.09 Absolute Basophils (0.0-0.2) 10^3/uL 0.09 Sodium Cancelled Potassium Cancelled Chloride Cancelled Carbon Dioxide Cancelled Anion Gap Cancelled BUN Cancelled Creatinine Cancelled Estimated GFR/1.73 m2 Cancelled Glucose Cancelled Calcium Cancelled Total Bilirubin Cancelled AST Cancelled ALT Cancelled Alkaline Phosphatase Cancelled Troponin I Cancelled Total Protein Cancelled Albumin Cancelled
[2021-10-08 11:44] LABS: Bilirubin Negative (Negative); Blood Negative (Negative); Clarity Clear (Clear); Glucose Negative (Negative); Ketones Negative (Negative); Leukocyte Esterase Trace (Negative); Nitrite Negative (Negative); Urobilinogen 0.2 EU/dL (Up TO 0.2)
[2021-10-08 11:53] LABS: Bacteria Negative HPF (Negative); C & S Indicated? Yes; Casts Negative LPF (Negative); Crystals Negative HPF (Negative); Epithelial Cells Few HPF (Negative); Mucus Negative (Negative); RBC Negative HPF (0-2); WBC 0-2 HPF (0-5)
[2021-10-08 12:07] LABS: ALT 21 U/L (14-59); AST 28 U/L (15-37); Albumin 3.2 g/dL (3.4-5.0); Alkaline Phosphatase 89 U/L (46-116); Anion Gap 2.7 mmol/L (3-11); BUN 17 mg/dL (7-18); Bilirubin, Total 0.5 mg/dL (0.2-1.0); CO2 29.3 mmol/L (21.0-32.0); Calcium 9.1 mg/dL (8.5-10.1); Chloride 105 mmol/L (98-107); Estimated GFR 52.82 (mL/min/1.73m2); Glucose 115 mg/dL (74-106); Sodium 137 mmol/L (136-145); Total Protein 7.1 g/dL (6.4-8.2); Troponin I < 50 ng/L (<or=60)
[2021-10-08 12:08] LABS: Potassium 5.2 mmol/L (3.5-5.1)
--- NOTE | 2021-10-08 13:08 | NUR.NOTE ---
Nursing Note: Pt info faxed to PCP for followup tomorrow for weakness. Pricila, ED
== END 2021-10-08 13:23 | disposition home or self-care (01) ==
PROVIDERS: Emergency Provider Physician Assistant; PCP Nurse Practitioner
DX: R53.1 Weakness (principal); E87.6 Hypokalemia; I10 Essential (primary) hypertension; Z87.891 Personal history of nicotine dependence; Z86.73 Personal history of transient ischemic attack (TIA), and cerebral infarction without residual deficits; Z79.02 Long term (current) use of antithrombotics/antiplatelets
CPT/HCPCS: 36415; 80053; 93005; 99284; 70551; 71045; 81003; 81015; 84484; 85025; 87086; 93010; 99285

== ENCOUNTER 2021-10-20 21:23 | Outpatient (REF) | payer MEDICARE, OTHER, SELFPAY ==
[2021-10-20 20:13] LABS: Anion Gap 8.2 mmol/L (3-11); BUN 17 mg/dL (7-18); CO2 28.8 mmol/L (21.0-32.0); CREATININE 1.1 mg/dL (0.55-1.02); Calcium 9.2 mg/dL (8.5-10.1); Calculated LDL 86 mg/dL (<100); Chloride 104 mmol/L (98-107); Cholesterol 171 mg/dL (<200); Estimated GFR 47.32 (mL/min/1.73m2); Glucose 140 mg/dL (74-106); HDL Cholesterol 45 mg/dL (40-60); Potassium 4.3 mmol/L (3.5-5.1); Sodium 141 mmol/L (136-145); Triglyceride 200 mg/dL (<150)
== END 2021-10-20 21:24 | disposition home or self-care (01) ==
LOC: NCHCN 21:23
PROVIDERS: PCP Nurse Practitioner; Visit Provider Family Medicine
DX: E87.5 Hyperkalemia (principal); E78.5 Hyperlipidemia, unspecified
CPT/HCPCS: 80048; 80061

== ENCOUNTER 2022-03-16 02:17 | Outpatient (CLI) | payer MEDICARE, OTHER, SELFPAY ==
--- NOTE | 2022-03-16 10:27 | ST.MBS_ITS ---
Date of Service Date of service: 03/16/22 Time of Service: 10:27 Modified Barium Swallow Study Findings: Video fluoroscopic Swallowing Evaluation (VFSE) / Modified Barium Swallow Study (MBSS) Speech Language Pathology Report Patient referred for VFSE/MBSS from Dr. Renteria given reported dysphagia. HPI & Patient report of function: Ms. Castillo is an 85 year-old woman with a PMHx of hypertension, hyperlipidemia, remote TIA (in her 40s with left hemisensory loss lasting <24 hours), a history of polio at age 18 (with chronic dysphagia, left arm/right leg weakness), and breast cancer. Ms. Castillo suffered a stroke on 12/20/19 manifested by right hemisensory changes F/A/L secondary to a left thalamic ischemic stroke in the setting of profound hypertension, due to small vessel disease. She was evaluated by [facility] on 05/14/2020 with the following impressions: Patient demonstrates pharyngeal dysphagia with potential esophageal component given reported history and review of symptoms per interview; patient is at low-moderate risk for aspiration-related pulmonary complication, given adequate oral hygiene & presumed immunocompetence; i mprovements in physical mobility and overall pulmonary function likely to further reduce this risk. MBSS was recommended but never completed (patient declined). New re-referred by PCP for MBSS. This date, patient confirms long hx dysphagia secondary to polio, she recalls an MBSS with [facility] in the , at which point they recommended L head turn. She was told one side of her throat was weak. She also reports coughing frequently even outside of meals. She feels that sometimes food and drink goes into her throat before she is ready. She endorses pharyngeal stasis but not esophageal stasis. She has more trouble with stasis and coughing on solids, she feels she has minimal problems with liquids. She sometimes has trouble with oral tablet medications, but is usually able to clear these if she makes sure to perform her head turn. Imaging Hx: 03/16/18 - Flexible Laryngoscopy?with Dr Brewster revealed a normal appearing nasopharynx, with normal reyes. There are no masses or lesions. The oropharynx, vallecula, epiglottis, supraglottis, glottis, subglottis, pryriform sinuses and hypopharynx are within normal limits. True vocal cord motion is bilaterally symmetric, and preserved with excellent excursion and midline approximation. There is no pooling of secretions. There are no masses or lesions. There is no overt evidence of laryngopharyngeal reflux. There are no asymmetries. There is no particulate matter. Question of mycoplasma pneumonia, although unconfirmed Reports MBSS a few years ago at 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 Bladder cancer Breast cancer Hyperlipidemia Hypertension Polio spinobulbar with dysphagia, L arm/R leg weakness; at age 18TIA (transient ischemic attack) Surgical History? S/P left mastectomy IMPRESSIONS: Swallow safety is mildly impaired; swallow efficiency is impaired. Moderate chronic oropharyngoesophageal dysphagia. Characterized primarily by limited cricopharyngeal/UES distension and resulting in residue in pyriform sinus > valleculae resulting from poor pharyngeal wall movement/stripping wave and significantly reduced opening at the PES due to CP prominence. Patient appears to have adapted to CP dysfunction with habitual piecemeal deglutition or 2-phase swallow even for liquids, the first of which is with greatly reduced hyo-laryngeal and pharyngeal motility resulting in penetration. Suspect reduced movement during first swallow is partially due to guarding to avoid loss of control of remaining bolus in the oral cavity. By the final swallow, penetrated material is ejected and patient is able to achieve improved laryngeal closure with improved pharyngeal stripping. Suspect smaller sip sizes and retraining with swallow technique may decrease residue and reduce risk of aspiration. ? Patient appears to be at low risk for potential aspiration PNA and/or pulmonary compromise and low risk for malnutrition/dehydration. Diet modification is indicated; non-oral nutrition is not indicated. Swallow prognosis is good given: Positive prognostic factors: Severity, Motivation, Effectiveness of trialed compensatory strategies, Negative prognostic factors: Age, Time since onset, Surgical/anatomical factors, Patient appears to be a good candidate for behavioral swallow rehabilitation in addition to consult with GI to evaluate CP function and possible interventions. Specialist referrals recommended:? GI ? RECOMMENDATIONS: Diet Texture Recommendation:? IDDSI LEVEL SOLIDS 6-Soft & Bite-Sized Solids LIQUIDS 0-Thin Liquids Please see further details at?www.iddsi.org http://www.iddsi.org/ MEDICATIONS Whole or Crushed, as able with 0-Thin Liquids or 4-Puree Diet texture modification is per patient's preference; please adjust diet textures at patient's discretion & collaboration with care team. Do not alter medications (e.g., cut)? without advice from your MD or pharmacist. Risk Management Strategies:? Behavioral reflux precautions, including upright position during + 90 mins after meals. Small bites, approx [id number] Very small sips, approx 5mL / teaspoon Alternate solids/liquids as able Multiple swallows per bolus to encourage clearance of pharyngeal stasis/residue L head turn for large/dense bolus, medications. Control risk factors for aspiration pneumonia via (a) thorough oral hygiene & (b) maintaining physical mobility as tolerated PLAN: Therapy: Recommend subsequent outpatient session with [facility] to review results of today's exam and initiate treatment plan as below, pending patient agreement/goals of care. Goals: Detention: Patient will be independent with aspiration precautions, diet modifications, and safe swallowing strategies. Patient will report improved comfort and efficiency with swallowing. Short Term: Patient will demonstrate accurate form with swallowing (hard and fast) while utilizing safe swallow strategies (small bite and sip sizes) to improve comfort and efficiency and to reduce risk of choking and aspiration over the course of 1-2 sessions. Patient will report improved swallow function as evidenced by reduced EAT-10 score of at least 4 points within 3 months. Patient/caregiver will verbalize/demonstrate understanding of education r/t anatomy/physiology of normal vs disordered swallowing mechanism, overt s/sx to monitor for re: potential aspiration of food liquids, recommendations for improved oral care, relationship between respiratory function changes and deglutition, rationale for risk management strategies. x1-2 sessions ----- OBJECTIVE Videofluoroscopic Swallow Evaluation (VFSE/MBSS) was conducted in the lateral projection by Speech-Language Pathologist, in collaboration with Radiologist, to evaluate oropharyngeal swallow function. Anatomic view under fluoroscopy: Noting CP prominance and possible early/small pocketing c/w very small ?Zenker's Diverticulum as noted by Radiologist (see report for further info). PO Barium Contrast Trials Oral barium water-soluble contrast was administered as follows: IDDSI Level 0 Varibar thin liquid (40% w/v) IDDSI Level 4 Varibar pudding/pureed/extremely thick (40% w/v) IDDSI Level 7 Regular Solid: 1/2 mani cracker coated in 3 mL Varibar pudding MBSImP Component Scores: COMPONENT Scale SCORE 1 Lip closure (0-4) 0 Resulted in no labial escape 2 Hold Position (0-3) 1 Allowed bolus escape to lateral buccal cavity/floor of mouth 3 Bolus Preparation (0-4) 1 Resulted in slow prolonged chewing/mashing with complete re-collection 4 Bolus Transport (0-4) 3 Was with repetitive/disorganized motion of tongue (possibly second to piecemeal deglutitio n strategy. Weakness/shaking also noted with large liquid volume later in the study 5 Oral Residue (0-4) 3 Was the majority of bolus remaining 6 Swallow Initiation (0-4) 2 Occurred as bolus head at posterior laryngeal surface of epiglottis 7 Soft Palate Elevation (0-4) 0 Resulted in no bolus between soft palate and t he pharyngeal wall 8 Laryngeal Elevation (0-3) 1 Was decreased with partial superior movement of thyroid cartilage/partial approximation of arytenoids to epiglottic petiole 9 Anterior Hyoid Motion (0-2) 1 Demonstrated partial anterior movement 10 Epiglottic Movement (0-2) 2 Resulted in no inversion 11 Laryngeal Closure (0-2) 1 Was incomplete with narrow a column of air/contra st in laryngeal vestibule 12 Pharyngeal Stripping Wave (0-2) 1 Was present, but diminished 13 Pharyngeal Contraction (0-3) NA 14 PES Opening (0-3) 2 Demonstrated minimal distension/minimal duration, with marked obstruction of flow 15 Tongue Base Retraction (0-4) 3 Allowed a wide column of contrast or air between the retracted tongue base and the posterior pharyngeal wall 16 Pharyngeal Residue (0-4) 3 Was the majority of contrast within or on pharyngeal structures 17 Esophageal Clearance (0-4) NA Results: COMPONENT Scale SCORE 1 Oral Score (0-18) 10 2 Pharyngeal Score (0-29) 14 3 Esophageal Score (0-4) 0 not tested Dysphagia Outcome and Severity Scale: COMPONENT Scale SCORE 1 LEVEL (1-7) 5 Full PO: Modified Diet and/or [place] - Mild dysphagia; Distant supervision may need 1 diet consistency restricted Penetration-Aspiration Scale: COMPONENT Scale SCORE 1 Thin liquid (1-8) 2 Contrast entered the airway, remained above the vocal folds, and was ejected from the airway. 2 Dearing thick (1-8) NA 3 Honey thick (1-8) NA 4 Pudding thick (1-8) 1 Contrast did not enter the airway 5 CookieA (1-8) 1 Contrast did not enter the airway Trialed Compensatory Strategies & Outcome: Maneuvers Successful (+) Unsuccessful (-) Postures Successful (+) Unsuccessful (-) 3 second Preparatory Set +/- Chin Tuck Posture ? Cough Posterior Head tilt ? Reflexive ? Cued ? Throat Clear Head Tilt to ? Reflexive Left ? Cued? Right ? Saliva swallow + Head Turn/Rotate to ? Supraglottic Swallow Left + to reduce pharyngeal residue Super-supraglottic Swallow Right ? Bolus Modifications Successful (+) Unsuccessful (-) Delivery/Alternating Consistencies ? Follow with Liquid Wash + mild benefit ? Follow with Solid Bolus? Delivery/Via Straw ? Reduced Volume + Reduced Rate of Intake? ? Increased Viscosity ? Other:?? ? Thank you for allowing us to take part in this patient's care. Please feel free to contact the [facility] Speech Language Pathology Department with any questions/concerns. Coding CPT Codes MOTION FLUOROSCOPY/SWALLOW - [id number] ([id number])
--- NOTE | 2022-03-16 11:20 | DI.RAD_ITS ---
Exam(s) RF MODIFIED SPEECH BA SWALLOW TECHNIQUE: Modified barium swallow was performed in conjunction with speech pathology. CONTRAST MATERIAL: Barium impregnated food materials and drink were administered by the speech thera pist.. COMPARISON: No exams were available for comparison FINDINGS: Note that this is not a dedicated esophagram, distal esophagus not evaluated. There is no evidence of aspiration or penetration of thick or thin liquids, barium coated apple sauce , cottage cheese or cookies. Speech pathology report to follow There was no aspiration evident during this study. Small Zenker's diverticulum is noted. See speech pathologist report IMPRESSION: No evidence of aspiration or penetration. Zenker's diverticulum noted. Please report to speech pathologist report. RADIATION DOSE DELIVERED: nina To=7.98 mGy
[2022-03-16] MEDS: Barium Sulfate 81% w/w for Oral Suspension 148 GM BTL 70 GM PO (11:39)
[2022-03-16] MEDS: Barium Sulfate 40% W/V 240 ML BTL 20 ML PO (11:41)
[2022-03-16] MEDS: Barium Sulfate Oral Paste 40% W/V 230 ML TUBE 13 ML PO (11:43)
== END 2022-03-16 02:37 ==
PROVIDERS: PCP Nurse Practitioner; Visit Provider Nurse Practitioner Family
DX: R13.10 Dysphagia, unspecified (principal)
CPT/HCPCS: 92611; 74221

== ENCOUNTER 2022-05-10 01:26 | Outpatient (CLI) | payer MEDICARE, OTHER, SELFPAY ==
--- NOTE | 2022-05-10 | DI.MAMMO_ITS ---
Exam(s) MG MAMMO SCREENING 60 MIN DUR EXAM: MG MAMMO SCREENING 60 MIN DUR CLINICAL HISTORY: SCREENING FOR BREAST CANCER Z12.39, PERS HX. TECHNIQUE: Craniocaudal and mediolateral oblique Full Field Digital Mammography views of the right b reast with Computer Aided Diagnosis followed by Tomosynthesis. COMPARISON: Comparison is made with prior examinations. FINDINGS: Mammography/Tomosynthesis: The patient is status post left mastectomy. Masses/Architectural Distortion: None seen. Microcalcifictions: No suspicious pleomorphic-type are seen. Skin Thickening/Nipple Retraction: None. IMPRESSION: 1. No evidence of malignancy is noted. 2. Unless there is more urgent need, follow-up screening mammography is recommended, as per [place] [employer] guidelines. 3. The findings were discussed with the patient on the date of the examination. BI-RADS Category 1 - Negative Breast Density - Category B - Scattered areas of fibroglandular density Breast density Category C or D implies that the patient has dense breast tissue. Dense breast tissue can make it harder to find cancer on a mammogram. Dense breast tissue is also associated with an incr eased risk of breast cancer. This information about the result of the mammogram report was provided to the patient to raise their awareness. Use this report when you speak with the patient about their risks for breast cancer, which includes their family history. At that time, you may recommend additional screening tests (Ultrasoun d or MRI) as these tests may add significant information. A negative radiographic report should not delay biopsy if a dominant or clinically suspicious mass is present. Up to ten percent of cancers are not identified on mammography. A negative report may reinforce clinical impression. Adenosis and dense breasts may obscure an underlying neoplasm. False positive reports average 6 to 10%. Patient will receive a letter notifying them of these results.
== END 2022-05-10 01:46 ==
LOC: DI 01:26
PROVIDERS: PCP Nurse Practitioner Family; Visit Provider Nurse Practitioner Family
DX: Z12.31 Encounter for screening mammogram for malignant neoplasm of breast (principal); Z85.3 Personal history of malignant neoplasm of breast; Z90.12 Acquired absence of left breast and nipple
CPT/HCPCS: 77063; 77067

== ENCOUNTER 2023-01-07 16:35 | Outpatient (REF) | payer MEDICARE, OTHER, SELFPAY ==
[2023-01-07 15:08] LABS: HCT 38.7 % (36.0-46.0); HGB 12.3 g/dL (11.2-15.7); MCH 27.5 pg (27.0-33.0); MCHC 31.8 % (32.0-36.0); MCV 86 fL (80-95); MPV 10.6 fL (8.0-11.0); Platelet Count 351 10^3/uL (130-400); RBC 4.48 10^6/uL (3.93-5.22); RDW 13.8 % (11.7-14.6); RDW-SD 43.8 fL; WBC 8.91 10^3/uL (4.4-10.8)
[2023-01-07 15:34] LABS: Hemoglobin A1C 6.4 % (<5.7)
[2023-01-07 15:48] LABS: ALT 16 U/L (14-59); AST 17 U/L (15-37); Albumin 3.2 g/dL (3.4-5.0); Alkaline Phosphatase 101 U/L (46-116); Anion Gap 8.4 mmol/L (3-11); BUN 17 mg/dL (7-18); Bilirubin, Total 0.5 mg/dL (0.2-1.0); CO2 28.6 mmol/L (21.0-32.0); Calcium 9.4 mg/dL (8.5-10.1); Calculated LDL 104 mg/dL (<100); Chloride 107 mmol/L (98-107); Cholesterol 175 mg/dL (<200); Estimated GFR 55.21 (mL/min/1.73m2); Glucose 116 mg/dL (74-106); HDL Cholesterol 53 mg/dL (40-60); Potassium 4.5 mmol/L (3.5-5.1); Sodium 144 mmol/L (136-145); Total Protein 6.4 g/dL (6.4-8.2); Triglyceride 93 mg/dL (<150)
== END 2023-01-07 16:36 | disposition home or self-care (01) ==
LOC: NCHCN 16:35
PROVIDERS: PCP Physician Assistant; Visit Provider Physician Assistant
DX: I10 Essential (primary) hypertension (principal); R73.03 Prediabetes; E78.5 Hyperlipidemia, unspecified
CPT/HCPCS: 80053; 80061; 85027; 83036

== ENCOUNTER → 2023-02-28 09:53 | Outpatient (BNVA) | payer MEDICARE, OTHER, SELFPAY | PROVIDERS: PCP Physician Assistant; Referring Provider Podiatrist; Visit Provider Physical Therapy Assistant | DX: I73.9 Peripheral vascular disease, unspecified (principal); R60.0 Localized edema | CPT/HCPCS: 93922 ==

== ENCOUNTER → 2023-03-17 10:13 | Outpatient (BNVA) | payer MEDICARE, OTHER, SELFPAY | PROVIDERS: PCP Physician Assistant; Referring Provider Physician Assistant; Visit Provider Podiatrist | DX: M79.674 Pain in right toe(s) (principal); L60.3 Nail dystrophy; M79.675 Pain in left toe(s); I73.89 Other specified peripheral vascular diseases; R60.0 Localized edema; R09.89 Other specified symptoms and signs involving the circulatory and respiratory systems; R20.8 Other disturbances of skin sensation; L65.9 Nonscarring hair loss, unspecified; L84 Corns and callosities | CPT/HCPCS: 11721 ==

== ENCOUNTER → 2023-07-25 04:19 | Outpatient (CLI) | payer MEDICARE, OTHER, SELFPAY ==
--- NOTE | 2023-07-25 | DI.MAMMO_ITS ---
Exam(s) MG MAMMO SCREENING 60 MIN DUR EXAM: MG MAMMO SCREENING 60 MIN DUR CLINICAL HISTORY: SCREENING, Z12.31, HX BREAST CANCER TECHNIQUE: Bilateral full field digital CC and MLO mammographic images were obtained with 3D tomosyn thesis and utilizing computer aided detection (CAD). COMPARISON: Available for comparison. FINDINGS: Status post left mastectomy. Masses/Architectural Distortion: None seen. Microcalcifications: No suspicious pleomorphic-type are seen. Skin Thickening/Nipple Retraction: None. IMPRESSION: 1. No significant interval change with no specific features of malignancy noted. 2. Unless there is more urgent need, screening mammography is recommended, as per [place] [employer] guidelines. BI-RADS Category 1 - Negative Breast Density - Category B - Scattered areas of fibroglandular density Breast density category C or D implies that the patient has dense breast tissue. Dense breast tissue is very common and is not abnormal but dense breast tissue can make it harder to find cancer on a ma mmogram. Also, dense breast tissue may increase their breast cancer risk. This information about the result of the mammogram report was provided to the patient to raise their awareness. Use this report when you speak with the patient about their risks for breast cancer, which includes their family hist ory. At that time, you may recommend for more screening tests (Ultrasound or MRI) as they might be us eful based on their risk. A negative radiographic report should not delay biopsy if a dominant or clinically suspicious mass is present. Up to ten percent of cancers are not identified on mammography. A negative report may reinforce clinical impression. Adenosis and dense breasts may obscure an underlying neoplasm. False positive reports average 6 to 10%. Patient will receive a letter notifying them of these results.
== END ==
PROVIDERS: PCP Physician Assistant; Visit Provider Physician Assistant
DX: Z12.31 Encounter for screening mammogram for malignant neoplasm of breast (principal)
CPT/HCPCS: 77063; 77067

== ENCOUNTER → 2023-10-19 09:18 | Outpatient (BNVA) | payer MEDICARE, OTHER, SELFPAY | PROVIDERS: PCP Physician Assistant; Referring Provider Physician Assistant; Visit Provider Podiatrist | DX: M79.674 Pain in right toe(s) (principal); M79.675 Pain in left toe(s); L60.3 Nail dystrophy; I73.89 Other specified peripheral vascular diseases; I83.93 Asymptomatic varicose veins of bilateral lower extremities; R60.0 Localized edema; G45.9 Transient cerebral ischemic attack, unspecified; R20.0 Anesthesia of skin; A80.9 Acute poliomyelitis, unspecified | CPT/HCPCS: 11721 ==

== ENCOUNTER → 2024-02-01 09:04 | Outpatient (BNVA) | payer MEDICARE, OTHER, SELFPAY | PROVIDERS: PCP Physician Assistant; Referring Provider Physician Assistant; Visit Provider Podiatrist | DX: L60.3 Nail dystrophy (principal); I73.89 Other specified peripheral vascular diseases; I83.93 Asymptomatic varicose veins of bilateral lower extremities; R60.0 Localized edema; R20.0 Anesthesia of skin; A80.9 Acute poliomyelitis, unspecified | CPT/HCPCS: 11721 ==

== ENCOUNTER 2024-02-06 12:04 | Outpatient (REF) | payer MEDICARE, OTHER, SELFPAY ==
[2024-02-06 15:37] LABS: HGB 12.6 g/dL (11.2-15.7); MCH 27.6 pg (27.0-33.0); MCHC 31.5 % (32.0-36.0); MCV 88 fL (80-95); Platelet Count 369 10^3/uL (130-400); RBC 4.57 10^6/uL (3.93-5.22); RDW 13.7 % (11.7-14.6); RDW-SD 43.8 fL; WBC 9.29 10^3/uL (4.4-10.8)
[2024-02-06 18:03] LABS: Hemoglobin A1C 6.4 % (<5.7)
[2024-02-06 18:28] LABS: Anion Gap 5.6 mmol/L (3-11); BUN 16 mg/dL (7-18); CO2 30.4 mmol/L (21.0-32.0); CREATININE 1.2 mg/dL (0.55-1.02); Calcium 9.2 mg/dL (8.5-10.1); Calculated LDL 92 mg/dL (<100); Chloride 106 mmol/L (98-107); Cholesterol 170 mg/dL (<200); Estimated GFR 44.08 (mL/min/1.73m2); Glucose 106 mg/dL (74-106); HDL Cholesterol 58 mg/dL (40-60); Potassium 4.7 mmol/L (3.5-5.1); Sodium 142 mmol/L (136-145); Triglyceride 102 mg/dL (<150)
== END 2024-02-06 12:05 | disposition home or self-care (01) ==
LOC: NCHCN 12:04
PROVIDERS: PCP Physician Assistant; Visit Provider Physician Assistant
DX: I10 Essential (primary) hypertension (principal); R73.03 Prediabetes
CPT/HCPCS: 80048; 80061; 85027; 83036

== ENCOUNTER → 2024-05-02 08:30 | Outpatient (BNVA) | payer MEDICARE, OTHER, SELFPAY | PROVIDERS: PCP Physician Assistant; Referring Provider Physician Assistant; Visit Provider Podiatrist | DX: L60.3 Nail dystrophy (principal); I73.89 Other specified peripheral vascular diseases; I83.93 Asymptomatic varicose veins of bilateral lower extremities; R60.0 Localized edema; R20.0 Anesthesia of skin; G14 Postpolio syndrome | CPT/HCPCS: 11721 ==

== ENCOUNTER 2024-05-29 13:43 | Outpatient (CLI) | payer MEDICARE, OTHER, SELFPAY ==
--- NOTE | 2024-05-29 | DI.RAD_ITS ---
Exam(s) XR ANKLE LT COMPLETE EXAM: XR ANKLE LT COMPLETE CLINICAL HISTORY: Pain and left ankle and joints of lt foot, M25.572 TECHNIQUE: 2D digital imaging was performed. Three views. COMPARISON: No exams were available for comparison FINDINGS: BONES: No acute fracture is present. No bony destructive lesion is seen. JOINTS:The ankle mortise is normally aligned. No significant joint space narrowing. SOFT TISSUE: Marked swelling around the malleoli. IMPRESSION: Soft tissue swelling. DATA REPOSITORY: RADIATION DOSE DELIVERED:
--- NOTE | 2024-05-29 | DI.RAD_ITS ---
Exam(s) XR KNEE LT 3V AP,LAT,PRASHANT EXAM: XR KNEE LT 3V AP,LAT,PRASHANT CLINICAL HISTORY: Pain in lt knee, M25.562. TECHNIQUE: 2D digital imaging was performed. Three views. COMPARISON: No exams were available for comparison FINDINGS: BONES: No acute fracture is present. No bony destructive lesion is seen. JOINTS: The knee is normally aligned. No joint effusion is seen. Joint spaces are maintained. Mini mal periarticular spurring. SOFT TISSUE: Mild vascular calcifications. IMPRESSION: Minimal degenerative changes. DATA REPOSITORY: RADIATION DOSE DELIVERED:
== END 2024-05-29 14:03 ==
PROVIDERS: PCP Physician Assistant; Visit Provider Nurse Practitioner Family
DX: M25.572 Pain in left ankle and joints of left foot (principal); M25.562 Pain in left knee
CPT/HCPCS: 73562; 73610

== ENCOUNTER 2024-06-25 15:09 | Outpatient (REF) | payer MEDICARE, OTHER, SELFPAY ==
[2024-06-25 15:07] LABS: Bilirubin Negative (Negative); Blood Negative (Negative); Clarity Clear (Clear); Glucose Negative (Negative); Ketones Negative (Negative); Leukocyte Esterase Negative (Negative); Nitrite Negative (Negative); Urobilinogen 0.2 mg/dL (Up to 0.2); pH 5.5 (5-8)
== END 2024-06-25 15:10 | disposition home or self-care (01) ==
LOC: NCHCN 15:09
PROVIDERS: PCP Physician Assistant; Visit Provider Physician Assistant
DX: N39.0 Urinary tract infection, site not specified (principal); R82.89 Other abnormal findings on cytological and histological examination of urine
CPT/HCPCS: 81003; 87086

== ENCOUNTER → 2024-08-08 14:50 | Outpatient (BNVA) | payer MEDICARE, OTHER, SELFPAY | PROVIDERS: PCP Physician Assistant; Referring Provider Physician Assistant; Visit Provider Podiatrist | DX: L60.3 Nail dystrophy (principal); I73.89 Other specified peripheral vascular diseases; I83.93 Asymptomatic varicose veins of bilateral lower extremities; R60.0 Localized edema; R20.0 Anesthesia of skin; G14 Postpolio syndrome | CPT/HCPCS: 11721 ==

== ENCOUNTER → 2024-12-25 08:25 | Outpatient (BNVA) | payer MEDICARE, OTHER, SELFPAY | PROVIDERS: PCP Physician Assistant; Referring Provider Physician Assistant; Visit Provider Podiatrist | DX: L60.3 Nail dystrophy (principal); I73.89 Other specified peripheral vascular diseases; I83.93 Asymptomatic varicose veins of bilateral lower extremities; R60.0 Localized edema; R20.0 Anesthesia of skin; A80.9 Acute poliomyelitis, unspecified; R09.89 Other specified symptoms and signs involving the circulatory and respiratory systems; R20.8 Other disturbances of skin sensation; L65.9 Nonscarring hair loss, unspecified; R23.4 Changes in skin texture; L60.8 Other nail disorders | CPT/HCPCS: 11719 ==

== ENCOUNTER 2025-02-04 09:35 | Outpatient (CLI) | payer MEDICARE, OTHER, SELFPAY ==
[2025-02-04 08:43] LABS: HCT 38.8 % (36.0-46.0); HGB 11.9 g/dL (11.2-15.7); MCH 26.3 pg (27.0-33.0); MCHC 30.7 % (32.0-36.0); MCV 86 fL (80-95); MPV 10.4 fL (8.0-11.0); Platelet Count 378 10^3/uL (130-400); RBC 4.53 10^6/uL (3.93-5.22); RDW 13.7 % (11.7-14.6); RDW-SD 42.4 fL; WBC 9.98 10^3/uL (4.4-10.8)
[2025-02-04 09:32] LABS: ALT 10 U/L (10-49); AST 17 U/L (<34); Albumin 3.9 g/dL (3.4-5.0); Alkaline Phosphatase 95 U/L (46-116); Anion Gap 4 mmol/L (3-11); BUN 16 mg/dL (9-23); Bilirubin, Total 0.40 mg/dL (0.2-1.2); CO2 30.0 mmol/L (20.0-31.0); Calcium 8.8 mg/dL (8.3-10.6); Chloride 107 mmol/L (98-107); Cholesterol 153 mg/dL (<200); Glucose 116 mg/dL (74-106); HDL Cholesterol 47 mg/dL (>40); Potassium 4.0 mmol/L (3.5-5.1); Sodium 141 mmol/L (136-145); Total Protein 6.6 g/dL (5.7-8.2)
[2025-02-04 10:42] LABS: Hemoglobin A1C 6.2 % (<5.7)
== END 2025-02-04 09:36 | disposition home or self-care (01) ==
LOC: LBO 09:38
PROVIDERS: PCP Physician Assistant; Visit Provider Physician Assistant
DX: R73.03 Prediabetes (principal); E78.5 Hyperlipidemia, unspecified; K21.9 Gastro-esophageal reflux disease without esophagitis
CPT/HCPCS: 36415; 80053; 80061; 85027; 83036

== ENCOUNTER → 2025-02-25 00:29 | Outpatient (CLI) | payer MEDICARE, OTHER, SELFPAY ==
--- NOTE | 2025-02-25 14:36 | DI.MAMMO_ITS ---
Exam(s) MAMMO SCREENING EXAM: MAMMO SCREENING CLINICAL HISTORY: SCREENING,H/O BREAST CA,Z12.31 TECHNIQUE: Right full field digital CC and MLO mammographic images were obtained with 3D tomosynthesis and utilizing computer aided detection (CAD). COMPARISON: Comparison is made with prior examinations. FINDINGS: The patient is status post left mastectomy. Masses/Architectural Distortion: No suspicious masses or areas of architectural distortion are present. Microcalcifications: No suspicious pleomorphic-type are seen. Skin Thickening/Nipple Retraction: None. IMPRESSION: 1. No significant interval change with no specific features of malignancy noted. 2. Unless there is more urgent need, screening mammography is recommended, as per [employer] guidelines. 3. The findings were discussed with the patient on the date of the examination. BI-RADS Category 1 - Negative Breast Density - Category B - There are scattered areas of fibroglandular density. Breast density Category C or D implies that the patient has dense breast tissue. Dense breast tissue can make it harder to find cancer on a mammogram. Dense breast tissue is also associated with an increased risk of breast cancer. This information about the result of the mammogram report was provided to the patient to raise their awareness. Use this report when you speak with the patient about their risks for breast cancer, which includes their family history. At that time, you may recommend additional screening tests (Ultrasound or MRI) as these tests may add significant information. A negative radiographic report should not delay biopsy if a dominant or clinically suspicious mass is present. Up to ten percent of cancers are not identified on mammography. A negative report may reinforce clinical impression. Adenosis and dense breasts may obscure an underlying neoplasm. False positive reports average 6 to 10%. Patient will receive a letter notifying them of these results.
== END ==
LOC: DI 00:30
PROVIDERS: PCP Physician Assistant; Visit Provider Physician Assistant
DX: Z12.31 Encounter for screening mammogram for malignant neoplasm of breast (principal)
CPT/HCPCS: 77063; 77067